=== PATIENT | female | born 1950 | race Caucasian/White ===

== ENCOUNTER 2017-02-01 22:19 | Emergency (ER) | payer MEDICARE, OTHER ==
[~2017-02-01] VITALS: Ht 162.6 cm; Wt 53.5 kg
[~2017-02-01 22:19] MED LIST: AMIT25TA PO; AZIT250T6 PO; Doxycycline Hyclate PO; FLUD0.1T PO; GABA-585 PO; GLIP10TA13 PO; GUAI118L13 PO; HYDR-2762 PO; HYDR-3074 PO; HYDR5TAB2 PO; IPRA3AMP IH; LISI2.5T PO; MAGN400C PO; METF10002 PO; MUPI1OIN NS; POTA20TA12 PO; SITA100T PO; TRAM50TA PO
--- NOTE | 2017-02-01 22:26 | ED.ADGEN ---
Past History Past Medical History: Arthritis, Diabetes, MRSA, Other Past Surgical History: Cholecystectomy, Other Alcohol Use: None Drug Use: None Adult General Chief Complaint Chief Complaint " .. I tripped and fell in front of the [employer] .. I fell on to my Lt shoulder and knee..." It was mid day... but I am still hurting.." HPI HPI Patient is a 66 year old female who presents with above hx and complaints of left shoulder and left knee pain. She has small abrasion to left knee. Is able to do straight leg lift. Ligaments appear to be grossly stable. Does have crepitation with range of motion. Does have pain with weightbearing. Distal neurovascular intact. Patient also has pain in left shoulder. Does have yes sensation in deltoid area, Some crepitation in ROM Lt. shoulder. Distal neurovascular intact. Pt. has pain and give away weakness with isolation of rotator cuff. Pt. follows with Dr. Nina. Review of Systems Review of Systems Constitutional: Denies fever or chills [] Eyes: Denies change in visual acuity, redness, or eye pain [] HENT: Denies nasal congestion or sore throat [] Respiratory: Denies cough or shortness of breath [] Cardiovascular: No additional information not addressed in HPI [] GI: Denies abdominal pain, nausea, vomiting, bloody stools or diarrhea [] : Denies dysuria or hematuria [] Musculoskeletal: Denies back pain or joint pain []Except findings in Lt shoulder and Knee Integument: Denies rash or skin lesions [] Neurologic: Denies headache, focal weakness or sensory changes [] Endocrine: Denies polyuria or polydipsia [] Family History Family History Non-contributory Current Medications Current Medications Current Medications Medications (Trade) Dose Ordered Sig/Berta Start Time Stop Time Status Last Admin Dose Admin Albuterol/ Ipratropium (Duoneb) 3 ml 1X ONCE 02/01/17 22:30 02/01/17 22:31 DC Oxycodone/ Acetaminophen (Percocet 10) 1 tab 1X ONCE 02/01/17 23:30 02/01/17 23:31 DC 02/01/17 23:25 1 TAB See Nursing for home meds. Allergies Allergies Allergies Coded Allergies Type Severity Reaction Last Updated Verified insulin regular Allergy Severe Anaphylaxis 05/13/14 Yes Penicillins Allergy Intermediate 05/14/14 No I S O L A T I O N *CONTACT* Allergy Unknown 05/15/14 No Physical Exam Physical Exam Constitutional: Moderate distress, non-toxic appearance. [] HENT: Normocephalic, atraumatic, bilateral external ears normal, oropharynx moist, no oral exudates, nose normal. [] Eyes: PERRLA, EOMI, conjunctiva normal, no discharge. [] Neck: Normal range of motion, no tenderness, supple, no stridor. [] Cardiovascular:Heart rate regular rhythm, no murmur [] Lungs & Thorax: Bilateral breath sounds clear to auscultation [] Abdomen: Bowel sounds normal, soft, no tenderness, no masses, no pulsatile masses. [] Old surgery scar. Skin: Warm, dry, no erythema, no rash. [] Back: No tenderness, no CVA tenderness. [] Extremities: No tenderness, no cyanosis, no clubbing, ROM intact, no edema. [] Except Lt. shoulder and Lt knee findings. Neurologic: Alert and oriented X 3, normal motor function, normal sensory function, no focal deficits noted. [] Psychologic: Affect anxious, judgement normal, mood normal. [] Current Patient Data Vital Signs Vital Signs Date Time Temp Pulse Resp B/P (MAP) Pulse Ox O2 Delivery O2 Flow Rate FiO2 02/02/17 01:17 93 20 142/77 (98) 94 Room Air 02/01/17 22:35 98.2 EKG EKG [] Radiology/Procedures Radiology/Procedures My interpretation of the knee films show no fracture or dislocation. Does have findings of arthritis. My interpretation left shoulder shows no obvious dislocation or significant fracture. Does have findings of degenerative joint changes.[] Course & Med Decision Making Course & Med Decision Making Pertinent Labs and Imaging studies reviewed. (See chart for details) [] Final Impression Final Impression 1. Contusions 2. Rotator cuff injury-Lt. [] Problems: Dragon Disclaimer Dragon Disclaimer This electronic medical record was generated, in whole or in part, using a voice recognition dictation system. ELIZABETH SCHMITZ MD Feb 01, 2017 22:26
[2017-02-01] MEDS ORDERED: IPRATRPIUM/ALBUTEROL 0.5/2.5MG 3 ML NEBU. NEB ONE (22:30)
[2017-02-01] MEDS ORDERED: oxyCODONE/APAP 10/325 1 TAB TABLET PO ONE (23:30)
[2017-02-01] MEDS ORDERED: HYDR1TAB12 PO (23:42)
[2017-02-02 01:17] VITALS: BP 142/77
--- NOTE | 2017-02-02 07:52 | RAD ---
Left knee with patella, 4 views, 02/01/2017: History: Fall, severe knee pain There is mild patchy bony demineralization. No acute fracture or dislocation is identified. There is mild spurring at the patellofemoral articulation. No joint effusion is evident. Moderate arterial calcifications are present. IMPRESSION: No acute left knee abnormality is detected.
--- NOTE | 2017-02-02 07:53 | RAD ---
Left shoulder, 3 views, 02/01/2017: History: Injury, fall, shoulder pain No fracture or dislocation is identified. There is mild degenerative change at the glenohumeral articulation. IMPRESSION: No acute bony abnormality is detected.
== END 2017-02-02 00:28 | disposition home or self-care (01) ==
LOC: ER 22:19
DX: S43.422A Sprain of left rotator cuff capsule, initial encounter (principal); S80.02XA Contusion of left knee, initial encounter; E11.9 Type 2 diabetes mellitus without complications; M19.90 Unspecified osteoarthritis, unspecified site; Z86.14 Personal history of Methicillin resistant Staphylococcus aureus infection; Z88.0 Allergy status to penicillin; Z88.8 Allergy status to other drugs, medicaments and biological substances; Z91.041 Radiographic dye allergy status; W01.0XXA Fall on same level from slipping, tripping and stumbling without subsequent striking against object, initial encounter; Y93.89 Activity, other specified; Y99.8 Other external cause status; Y92.89 Other specified places as the place of occurrence of the external cause
CPT/HCPCS: 73030; 73564; 99284

== ENCOUNTER 2017-03-29 16:50 | Emergency (ER) | payer MEDICARE, OTHER ==
[~2017-03-29] VITALS: Ht 162.6 cm; Wt 55.5 kg
[~2017-03-29 16:50] MED LIST changes: +HYDR1TAB12 PO
[2017-03-29 17:00] VITALS: BP 142/77
[2017-03-29] MEDS ORDERED: levoFLOXacin 750 MG TABLET PO STA (17:41)
[2017-03-29] MEDS ORDERED: LEVO750T31 PO (17:44)
--- NOTE | 2017-03-29 17:44 | PHYS DOC ---
Past History Past Medical History: Arthritis, Diabetes, MRSA, Other Past Surgical History: Cholecystectomy Alcohol Use: None Drug Use: None Adult General Chief Complaint Chief Complaint: COUGH HPI HPI Patient is a 66 year old female who presents with complaint of cough for the past 8 days. Patient states that she started having symptoms last weekend. Patient states that she was exposed to a daughter who had similar symptoms prior to onset. Patient has history of bronchitis. Patient states that she has been having worsening productive cough over the past few days of greenish sputum. Patient denies fevers, chest pain, or vomiting. Patient has been using [id number] medications with no relief in symptoms. Patient follows with Dr. Nina for primary care. Patient denies shortness of breath at this time. Patient has received her flu shot this year. Review of Systems Review of Systems Constitutional: Denies fever or chills [] Eyes: Denies change in visual acuity, redness, or eye pain [] HENT: Denies nasal congestion or sore throat [] Respiratory: Productive cough[] Cardiovascular: Denies chest pain or edema[] GI: Denies abdominal pain, nausea, vomiting, bloody stools or diarrhea [] : Denies dysuria or hematuria [] Musculoskeletal: Denies back pain or joint pain [] Integument: Denies rash or skin lesions [] Neurologic: Denies headache, focal weakness or sensory changes [] Allergies Allergies Allergies Coded Allergies Type Severity Reaction Last Updated Verified insulin regular Allergy Severe Anaphylaxis 05/13/14 Yes Penicillins Allergy Intermediate 05/14/14 No I S O L A T I O N *CONTACT* Allergy Unknown 05/15/14 No Physical Exam Physical Exam Constitutional: Alert, afebrile, no acute distress. [] HENT: Normocephalic, atraumatic, bilateral external ears normal, oropharynx moist, no oral exudates, nose normal. [] Eyes: PERRLA, EOMI, conjunctiva normal, no discharge. [] Neck: Normal range of motion, no tenderness, supple, no stridor. [] Cardiovascular:Heart rate regular rhythm, no murmur [] Lungs & Thorax: Bilateral breath sounds clear to auscultation, no wheezes [] Abdomen: Bowel sounds normal, soft, no tenderness, no masses, no pulsatile masses. [] Skin: Warm, dry, no erythema, no rash. [] Back: No tenderness, no CVA tenderness. [] Extremities: No tenderness, no cyanosis, no clubbing, ROM intact, no edema. [] Neurologic: Alert and oriented X 3, normal motor function, normal sensory function, no focal deficits noted. [] Current Patient Data Vital Signs Vital Signs Date Time Temp Pulse Resp B/P (MAP) Pulse Ox O2 Delivery O2 Flow Rate FiO2 03/29/17 17:00 97.3 104 16 98 Room Air Lab Results Not performed EKG EKG Not performed[] Radiology/Procedures Radiology/Procedures Not performed[] Course & Med Decision Making Course & Med Decision Making Pertinent Labs and Imaging studies reviewed. (See chart for details) Due to chronicity of symptoms with trending worsening symptoms the past few days , the patient will be started on oral Levaquin for treatment of possible pneumonia. Patient given first dose of Levaquin while in the emergency department. Patient's vital signs are stable and patient is in no acute distress at this time. The patient is appropriate for outpatient follow-up. Advised follow-up with Dr. Nina in 2 days for reevaluation and advised return emergency department for any worsening symptoms. Patient voiced understanding and in agreement with treatment plan. Dragon Disclaimer Dragon Disclaimer This chart was dictated in whole or in part using Voice Recognition software in a busy, high-work load, and often noisy Emergency Department environment. It may contain unintended and wholly unrecognized errors or omissions. Departure Departure: Impression: Primary Impression: Cough Disposition: 01 HOME, SELF-CARE Condition: STABLE Referrals: KAM NINA MD (PCP) Patient Instructions: Cough, Adult Additional Instructions: Follow-up Dr. Nina in 2 days for reevaluation. Return to emergency department for any worsening symptoms. Scripts Levofloxacin (LEVAQUIN) 750 Mg Tablet 1 TAB PO DAILY, #4 TAB Prov: KALIN ROGER MD 03/29/17 KALIN ROGER MD Mar 29, 2017 17:44
== END 2017-03-29 18:14 | disposition home or self-care (01) ==
LOC: ER 16:50
DX: R05 Cough (principal); E11.9 Type 2 diabetes mellitus without complications; Z86.14 Personal history of Methicillin resistant Staphylococcus aureus infection; Z88.0 Allergy status to penicillin; Z88.8 Allergy status to other drugs, medicaments and biological substances; Z91.041 Radiographic dye allergy status
CPT/HCPCS: 99283

== ENCOUNTER 2019-03-29 02:45 | Emergency (ER) | payer MEDICARE, OTHER ==
[~2019-03-29] VITALS: Ht 162.6 cm; Wt 54.4 kg
[~2019-03-29 02:45] MED LIST changes: -HYDR-2762 PO; +HYDR-2765 PO; -HYDR-3074 PO; +HYDR10TA66 PO; -HYDR1TAB12 PO; +HYDR1TAB13 PO; -HYDR5TAB2 PO; +HYDR5TAB3 PO; -IPRA3AMP IH; +IPRA3AMP29 IH; +LEVO750T31 PO; -METF10002 PO; +METF10007 PO
--- NOTE | 2019-03-29 03:10 | PHYS DOC ---
Past History Past Medical History: Arthritis, Diabetes, MRSA, Other Past Surgical History: Cholecystectomy Alcohol Use: None Drug Use: None Adult General Chief Complaint Chief Complaint: NAUSEA/VOMITING/DIARRHEA HPI HPI 68-year-old female presents with 2 day history of generalized malaise with associated diffuse abdominal pain and associated nausea. Patient also with chills. Spouse reports he had similar symptoms which are now resolved. Denies trauma. Denies dysuria. Review of Systems Review of Systems Constitutional: Reports generalized malaise and subjective fever and chills Eyes: Denies redness or eye pain HENT: Denies nasal congestion or sore throat Respiratory: Denies cough or shortness of breath Cardiovascular: Denies chest pain or palpitations GI: Reports abdominal pain, nausea, and vomiting : Denies dysuria or hematuria Musculoskeletal: Denies back pain or joint pain Integument: Denies rash or skin lesions Neurologic: Denies headache, focal weakness or sensory changes Complete systems were reviewed and found to be within normal limits, except as documented in this note. Allergies Allergies Allergies Coded Allergies Type Severity Reaction Last Updated Verified insulin regular Allergy Severe Anaphylaxis 05/13/14 Yes Penicillins Allergy Intermediate 05/14/14 No I S O L A T I O N *CONTACT* Allergy Unknown 05/15/14 No Physical Exam Physical Exam Constitutional: Well developed, well nourished, no acute distress, non-toxic appearance HENT: Normocephalic, atraumatic, oropharynx moist Eyes: Conjunctiva normal, no discharge Neck: Normal range of motion, no tenderness, supple Cardiovascular: Heart rate tachycardic, regular rhythm Lungs & Thorax: Bilateral breath sounds clear to auscultation, no wheezing Abdomen: Soft, epigastric tenderness, no guarding, mild distention Skin: Warm, dry, no erythema, no rash Back: No tenderness, no CVA tenderness Extremities: No tenderness, ROM intact, no edema Neurologic: Alert and oriented X 3, no focal deficits noted Psychologic: Affect normal, judgement normal EKG EKG @0320 Sinus tachycardia at 112 bpm, NO ST elevation, QRS 76ms , QT/QTc 296/405ms Radiology/Procedures Radiology/Procedures PROCEDURE: CT ABD PELV W/ IV CONTRST ONLY CT abdomen and pelvis with contrast. HISTORY: Abdominal pain, nausea and vomiting CT scan of the abdomen and pelvis was done using 75 mL Omnipaque 300 contrast. There is bronchiectasis and atelectasis in the lingula and right middle lobe. The lung bases are otherwise clear. There is no effusion. There is arthritis in the lower lumbar spine. Degenerative disc disease at L5-S1. Bladder is distended. Uterus and ovaries are normal. There is increased stool in the colon. Liver is normal in appearance. The patient's had a cholecystectomy. Spleen and adrenal glands are normal. Pancreas is normal. There is a staghorn calculus in the right kidney similar to the prior study from April 2016. There are small calculi in the lower pole of the left kidney. The upper pole calculus noted on the prior study is not present on the current exam. There is left hydronephrosis and hydroureter. There is a 10 x 6 mm calculus in the distal third of the left ureter but above the bladder. Small bowel pattern is normal. There is air in the bladder wall and within the bladder. Emphysematous cystitis can have this pattern. IMPRESSION: 1. Staghorn calculus right kidney. 2. Intrarenal calculi left kidney. 3. 10 x 6 mm calculus in the distal third of the left ureter with left hydronephrosis. 4. 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 5. Increased stool in the colon. Course & Med Decision Making Course & Med Decision Making Pertinent Labs and Imaging studies reviewed. (See chart for details) Patient presents with report of epigastric abdominal pain with associated nausea and vomiting 2 days. History of spouse with similar symptoms which are now resolved. Fever addressed. Symptomatic treatment provided. IV fluid hydration given. EKG stable. Labs obtained and posted to chart. SIRS criteria met with tachycardia and fever. UA with signs of infection. Lactic acid elevated. Patient meeting severe sepsis criteria. 30ml/kg IVF bolus given. Empiric antibiotics given. CT abdomen/pelvis with finding of staghorn calculi and emphysematous cystitis. Hypomagnesemia addressed. Patient requiring admission for further evaluation and treatment. Discussed with Dr. Nina (PCP) who is in agreement with transfer to facility with urology coverage. Utilized [facility] transfer line with acceptance for transfer to [facility]. Discussed with [facility] with Dr. Dakota Guo (hospitalist) accepting of transfer. Discussed findings and plan with patient and family, who acknowledge understanding and agreement. Dragon Disclaimer Dragon Disclaimer This electronic medical record was generated, in whole or in part, using a voice recognition dictation system. Departure Departure: Impression: Primary Impression: Severe sepsis Additional Impressions: Emphysematous cystitis Staghorn calculus Hypomagnesemia Hydronephrosis with obstructing calculus Disposition: ADMITTED INPATIENT Condition: GUARDED Referrals: KAM NINA MD (PCP) Sepsis Assessment Date and Time of Assessment Date: Mar 29, 2019 Time: 05:34 Fluid Challenge: Is the fluid challenge complet: No IBW Target Volume Used: No BMI > 30: No Vital Signs Vital Signs Vital Signs Date Time Temp Pulse Resp B/P (MAP) Pulse Ox O2 Delivery O2 Flow Rate FiO2 03/29/19 05:27 98.7 110 22 138/64 (88) 98 Nasal Cannula 2.0 Temperature Source: Oral Respirations Respiratory Effort: Normal Respiratory Pattern: Normal Cardiovascular Pulse Rhythm: Regular Heart: Nml rate, reg. rhythm Lung Sounds Breath Sounds: Clear Capillary Refill Capillary Refill: Rt Hand < 3 seconds Peripheral Pulse Pulse Location: Radial Pulse Strength: Normal (2+) Pulse Assessment Method: Palpation Integumentary Skin: Warm, Dry Skin Moisture: Dry Skin Turgor: Normal Skin Color: warm, dry Fingernail Color: WNL Critical Care Time Critical care time was 30 minutes which includes time at bedside, spent in discussion of patient's care with specialists and/or family members, with interpretation of laboratory and/or radiological studies and is exclusive of procedures. Problem Qualifiers RAFAEL CUMMINS DO Mar 29, 2019 03:10
[2019-03-29] MEDS ORDERED: KETOROLAC 15 MG/ML VIAL. IVP ONE (03:15)
[2019-03-29] MEDS ORDERED: IV NORMAL SALINE 1,000ML 1,000 ML IV ONE ×2 (03:15→05:30)
[2019-03-29] MEDS ORDERED: FAMOTIDINE 20 MG/2 ML VIAL IVP ONE (03:15)
[2019-03-29] MEDS ORDERED: ONDANSETRON PF 4 MG/2 ML VIAL. IVP ONE (03:15)
[2019-03-29] MEDS ORDERED: ACETAMINOPHEN 500 MG TABLET PO ONE (03:30)
[2019-03-29] MEDS ORDERED: IOHEXOL 300 MG/ML 75 ML VIAL. IV ONE (03:30)
[2019-03-29] MEDS ORDERED: CONTRAST GIVEN MC PRN (03:30)
--- NOTE | 2019-03-29 03:39 | EKG ---
[address] [address] Test Date: 2019-03-29 Test Time: 03:20:02 Pat Name: CARLINE CAMARILLO Department: Room: Gender: F Tele Rn: : [id number] Requested By: RAFAEL CUMMINS Order Number: [id number] Reading MD: Measurements Intervals [place] Rate: 112 P: 33 CT: 154 QRS: 24 QRSD: 76 T: 79 QT: 296 QTc: 405 Interpretive Statements SINUS TACHYCARDIA T ABNORMALITY IN HIGH LATERAL LEADS ABNORMAL ECG RI6.01 No previous ECG available for comparison
[2019-03-29 03:41] LABS: BASO # 0.1 x10^3/uL (0.0-0.2); BASO % 0 % (0-3); EOS # 0.1 x10^3/uL (0.0-0.7); EOS % 1 % (0-3); HEMATOCRIT 38.9 % (36.0-47.0); HEMOGLOBIN 12.4 g/dL (12.0-15.5); LYMPH # 1.3 x10^3/uL (1.0-4.8); LYMPH % 10 % (24-48); MEAN CORPUSCULAR HEMOGLOBIN 28 pg (25-35); MEAN CORPUSCULAR HGB CONC 32 g/dL (31-37); MEAN CORPUSCULAR VOLUME 89 fL (79-100); MONO # 1.4 x10^3/uL (0.0-1.1); MONO % 10 % (0-9); NEUT # 10.4 x10^3uL (1.8-7.7); NEUT % 79 % (31-73); PLATELET COUNT 346 x10^3/uL (140-400); RED BLOOD COUNT 4.38 x10^6/uL (3.50-5.40); WHITE BLOOD COUNT 13.2 x10^3/uL (4.0-11.0)
[2019-03-29 04:07] LABS: ALBUMIN 3.1 g/dL (3.4-5.0); ALBUMIN/GLOBULIN RATIO 0.6 (1.0-1.7); ALK PHOS 90 U/L (46-116); ALT (SGPT) 15 U/L (14-59); ANION GAP 12 (6-14); AST (SGOT) 11 U/L (15-37); BLOOD UREA NITROGEN 13 mg/dL (7-20); BUN/CREATININE RATIO 14 (6-20); CARBON DIOXIDE 29 mmol/L (21-32); CHLORIDE 97 mmol/L (98-107); CREATININE 0.9 mg/dL (0.6-1.0); GFR 62.6; GLUCOSE 255 mg/dL (70-99); LIPASE 104 U/L (73-393); MAGNESIUM 1.5 mg/dL (1.8-2.4); POTASSIUM 3.8 mmol/L (3.5-5.1); SODIUM 138 mmol/L (136-145); TOTAL BILIRUBIN 0.4 mg/dL (0.2-1.0); TOTAL PROTEIN 7.9 g/dL (6.4-8.2)
--- NOTE | 2019-03-29 05:02 | RAD ---
CT abdomen and pelvis with contrast. HISTORY: Abdominal pain, nausea and vomiting CT scan of the abdomen and pelvis was done using 75 mL Omnipaque 300 contrast. There is bronchiectasis and atelectasis in the lingula and right middle lobe. The lung bases are otherwise clear. There is no effusion. There is arthritis in the lower lumbar spine. Degenerative disc disease at L5-S1. Bladder is distended. Uterus and ovaries are normal. There is increased stool in the colon. Liver is normal in appearance. The patient's had a cholecystectomy. Spleen and adrenal glands are normal. Pancreas is normal. There is a staghorn calculus in the right kidney similar to the prior study from April 2016. There are small calculi in the lower pole of the left kidney. The upper pole calculus noted on the prior study is not present on the current exam. There is left hydronephrosis and hydroureter. There is a 10 x 6 mm calculus in the distal third of the left ureter but above the bladder. Small bowel pattern is normal. There is air in the bladder wall and within the bladder. Emphysematous cystitis can have this pattern. IMPRESSION: 1. Staghorn calculus right kidney. 2. Intrarenal calculi left kidney. 3. 10 x 6 mm calculus in the distal third of the left ureter with left hydronephrosis. 4. 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 5. Increased stool in the colon. PQRS Compliance Statement: One or more of the following individualized dose reduction techniques were utilized for this examination: 1. Automated exposure control 2. Adjustment of the mA and/or kV according to patient size 3. Use of iterative reconstruction technique Electronically signed by: Curry Lugo MD (03/29/2019 4:59 AM) [id number]
[2019-03-29 05:03] LABS: BILIRUBIN,URINE NEG (NEG); CLARITY,URINE HAZY; COLOR,URINE YELLOW; GLUCOSE,URINE >=1000 mg/dL (NEG); NITRITE,URINE NEG (NEG); UROBILINOGEN,URINE 0.2 mg/dL (0.2 mg/dL)
[2019-03-29 05:04] LABS: BACTERIA,URINE MOD /HPF (0-FEW); SQUAMOUS EPITHELIAL CELL,UR OCC /LPF; WBC,URINE >40 /HPF (0-4)
[2019-03-29] MEDS ORDERED: MAGNESIUM SULFATE 2GM 50 ML IV ONE (05:45)
[2019-03-29 05:57] VITALS: BP 140/75
[2019-03-29] MEDS ORDERED: AZTREONAM 2 GM in IV NORMAL SALINE 100ML 100 ML IV ONE (06:15)
== END 2019-03-29 08:27 | disposition other institution (70) ==
LOC: ER 02:45
DX: A41.9 Sepsis, unspecified organism (principal); R65.20 Severe sepsis without septic shock; N30.80 Other cystitis without hematuria; N13.2 Hydronephrosis with renal and ureteral calculous obstruction; E83.42 Hypomagnesemia; R11.2 Nausea with vomiting, unspecified; M19.90 Unspecified osteoarthritis, unspecified site; E11.9 Type 2 diabetes mellitus without complications; Z86.14 Personal history of Methicillin resistant Staphylococcus aureus infection; Z90.49 Acquired absence of other specified parts of digestive tract; Z91.041 Radiographic dye allergy status; Z88.0 Allergy status to penicillin; Z88.8 Allergy status to other drugs, medicaments and biological substances
CPT/HCPCS: 36415; 74177; 80053; 81001; 82553; 83605; 83690; 83735; 84484; 85025; 85610; 85730; 87040; 87086; 87205; 93005; 96361; 96365; 96366; 96375; 99291; J1885; J1956; J2405; J3475; J3490; Q9967; 87077; 87186; J7030

== ENCOUNTER 2019-04-07 16:49 | Inpatient (IN) | payer MEDICARE, OTHER ==
[~2019-04-07] VITALS: Ht 162.6 cm; Wt 61.3 kg
[2019-04-07 17:09] VITALS: BP 131/76
[2019-04-07] MEDS ORDERED: ONDANSETRON 4MG ODT 4TABLET STARTPACK. PO ONE (17:30)
[2019-04-07] MEDS ORDERED: ONDANSETRON ODT 4 MG TAB.RAPDIS PO PRN ×2 (17:30→20:30)
[2019-04-07] MEDS: IV NORMAL SALINE 1,000ML 1,000 ML IV SCH ×2 (17:30→21:57)
[2019-04-07 17:34] LABS: BASO % 0 % (0-3); EOS # 0.3 x10^3/uL (0.0-0.7); EOS % 3 % (0-3); HEMATOCRIT 37.5 % (36.0-47.0); LYMPH # 1.6 x10^3/uL (1.0-4.8); LYMPH % 17 % (24-48); MEAN CORPUSCULAR HEMOGLOBIN 29 pg (25-35); MEAN CORPUSCULAR HGB CONC 32 g/dL (31-37); MEAN CORPUSCULAR VOLUME 89 fL (79-100); MONO # 1.1 x10^3/uL (0.0-1.1); MONO % 11 % (0-9); NEUT # 6.6 x10^3uL (1.8-7.7); NEUT % 69 % (31-73); PLATELET COUNT 480 x10^3/uL (140-400); RED BLOOD COUNT 4.21 x10^6/uL (3.50-5.40); RED CELL DISTRIBUTION WIDTH 13.9 % (11.5-14.5); WHITE BLOOD COUNT 9.6 x10^3/uL (4.0-11.0)
[2019-04-07] MEDS: MORPHINE SULFATE 2 MG/ML DISP.SYRIN. IV PRN ×2 (17:36→21:17)
[2019-04-07 17:48] LABS: ALBUMIN 2.8 g/dL (3.4-5.0); ALBUMIN/GLOBULIN RATIO 0.7 (1.0-1.7); CALCIUM 8.9 mg/dL (8.5-10.1); CREATININE 0.9 mg/dL (0.6-1.0); GFR 62.6; POTASSIUM 3.5 mmol/L (3.5-5.1); TOTAL BILIRUBIN 0.3 mg/dL (0.2-1.0); TOTAL PROTEIN 7.1 g/dL (6.4-8.2)
[2019-04-07] MEDS ORDERED: DIPH1TAB PO (18:12)
[2019-04-07] MEDS ORDERED: ONDA4TAB12 PO (18:12)
[2019-04-07] MEDS ORDERED: ACET-704 PO (18:12)
[2019-04-07] MEDS ORDERED: DULO30CA2 PO (18:12)
[2019-04-07] MEDS ORDERED: MAGN500C10 PO (18:12)
[2019-04-07] MEDS ORDERED: LEVO500T8 PO (18:12)
[2019-04-07] MEDS ORDERED: LISI-338 PO (18:12)
[2019-04-07] MEDS ORDERED: MIDO10TA PO (18:12)
[2019-04-07] MEDS ORDERED: COLE1TAB PO (18:12)
[2019-04-07] MEDS ORDERED: DIAZ5TAB4 PO (18:12)
[2019-04-07] MEDS ORDERED: GLIP5TAB10 PO (18:12)
[2019-04-07] MEDS ORDERED: GLIP-26 PO (18:12)
[2019-04-07] MEDS ORDERED: LACT1CAP2 PO (18:16)
--- NOTE | 2019-04-07 19:08 | RAD ---
Exam: Acute abdominal series INDICATION: Nausea and vomiting TECHNIQUE: Frontal view of the chest with upright and supine views of the abdomen Comparisons: CT 03/29/2019 FINDINGS: The cardiomediastinal silhouette and pulmonary vessels are within normal limits. The lung and pleural spaces are clear. There is redemonstration of a right-sided staghorn calculus. Left-sided nephroureteral stent is noted. Suture material in the right lower quadrant is seen. Air and stool are seen throughout the colon to level the rectum in a nonobstructive bowel gas pattern. No suspicious masses or calcifications. No free air. Visualized osseous structures are unremarkable. IMPRESSION: 1. No acute cardiopulmonary process. 2. Nonobstructive bowel gas pattern. 3. Interval placement of left-sided nephroureteral stent in redemonstration of right staghorn calculus. Electronically signed by: Aurelio Zavala MD (04/07/2019 7:05 PM) [facility]
[2019-04-07] MEDS: PROMETHAZINE 25 MG TABLET. PO PRN (19:44)
[2019-04-07] MEDS ORDERED: ACETAMINOPHEN/CODEINE 300/30MG TABLET PO PRN (20:30)
[2019-04-07] MEDS ORDERED: DIPHENOXYLATE/ATROPINE TABLET. PO PRN (21:00)
[2019-04-07 21:03] VITALS: BP 132/82
[2019-04-07] MEDS: MAGNESIUM OXIDE 400 MG TABLET PO SCH (21:15)
[2019-04-07] MEDS: GABAPENTIN 100 MG CAPSULE. PO SCH (21:15)
[2019-04-07] MEDS: DULoxetine HCL 30 MG CAPSULE.DR PO SCH (21:15)
[2019-04-07] MEDS: HYDROCORTISONE 10 MG TABLET PO SCH (21:16)
[2019-04-07] MEDS: diazePAM 5 MG TABLET PO SCH (21:16)
[2019-04-07] MEDS: COLESTIPOL HCL 1 GM TABLET PO SCH (21:16)
[2019-04-07 21:55] LABS: BILIRUBIN,URINE NEG (NEG); CLARITY,URINE CLOUDY; COLOR,URINE RED; GLUCOSE,URINE >=1000 mg/dL (NEG); NITRITE,URINE NEG (NEG); UROBILINOGEN,URINE 0.2 mg/dL (0.2 mg/dL)
[2019-04-07 21:56] LABS: BACTERIA,URINE 0 /HPF (0-FEW); RBC,URINE TNTC /HPF (0-2); SQUAMOUS EPITHELIAL CELL,UR OCC /LPF
[2019-04-07] MEDS: IPRATRPIUM/ALBUTEROL 0.5/2.5MG 3 ML NEBU. IH SCH (22:00)
[2019-04-07] MEDS ORDERED: DEXTROSE 50% 25 GM / 50ML DISP.SYRIN. IV PRN (22:15)
[2019-04-08 00:36] VITALS: BP 134/80
[2019-04-08] MEDS: IV NORMAL SALINE 1,000ML 1,000 ML IV SCH ×3 (02:05→20:04)
[2019-04-08] MEDS: IPRATRPIUM/ALBUTEROL 0.5/2.5MG 3 ML NEBU. IH SCH ×3 (05:45→21:30)
[2019-04-08] MEDS: MIDODRINE 5 MG TABLET PO SCH ×3 (05:57→18:48)
[2019-04-08 06:12] VITALS: BP 110/68
[2019-04-08] MEDS ORDERED: INSULIN LISPRO 300 UNITS/3 ML VIAL. SQ SCH (08:00)
[2019-04-08] MEDS: DULoxetine HCL 30 MG CAPSULE.DR PO SCH ×2 (08:47→20:05)
[2019-04-08] MEDS: diazePAM 5 MG TABLET PO SCH ×4 (08:47→20:05)
[2019-04-08] MEDS: GABAPENTIN 100 MG CAPSULE. PO SCH ×2 (08:47→15:36)
[2019-04-08] MEDS: metFORMIN 500 MG TABLET PO SCH ×2 (08:47→18:53)
[2019-04-08] MEDS: MAGNESIUM OXIDE 400 MG TABLET PO SCH ×2 (08:47→20:05)
[2019-04-08] MEDS: glipiZIDE 5 MG TABLET PO PRN ×2 (08:47→18:48)
[2019-04-08] MEDS: HYDROCORTISONE 10 MG TABLET PO SCH ×2 (08:56→20:06)
[2019-04-08] MEDS: COLESTIPOL HCL 1 GM TABLET PO SCH ×2 (08:56→20:06)
[2019-04-08] MEDS: FLUDROCORTISONE 0.1 MG TABLET PO SCH (08:56)
[2019-04-08] MEDS ORDERED: levoFLOXacin 500 MG TABLET PO SCH (09:00)
[2019-04-08] MEDS: LISINOPRIL 5 MG TABLET. PO SCH (09:55)
[2019-04-08] MEDS: LACTOBACILLUS RHAMNOSUS GG 1 CAPSULE. PO SCH ×2 (09:55→20:05)
[2019-04-08] MEDS: LINAGLIPTIN 5 MG TABLET PO SCH (09:59)
[2019-04-08 11:03] VITALS: BP 126/69
--- NOTE | 2019-04-08 11:58 | RAD ---
Examination: CT ABDOMEN PELVIS WO CONTRAST History: Abdominal pain Comparison/Correlation: 03/29/2019 CT abdomen and pelvis with IV contrast Findings: Axial images of the abdomen and pelvis were obtained without contrast. Sagittal and coronal reformatted images were provided. Minimal scarring and bronchiectasis at the anterior right lung base is at the cardiophrenic angles is noted. No definite pleural effusion at the lung bases. Coronary show calcification is visible. Cholecystectomy noted. Liver, spleen, pancreas, and adrenal glands are normal. Moderate quantity of debris in the stomach is evident. Right renal staghorn calculus is present measuring 2.5 cm x 1.7 cm similar to the prior exam. Within the right lower pole major calyx, there is again seen a calculus measuring up to 2.2 cm longitudinal by 1.4 cm x 1.4 cm. Few small punctate calculi involving the right renal inferior pole calyces also again are seen. Slight fullness of the right renal pelvis is evident. There is no right hydroureter. There are a few calculi involving the left renal inferior pole calyces. The largest of these measures 0.45 cm maximum diameter and the next largest is up to 0.3 cm in diameter. Smaller punctate calculi also are present. There is a stent involving the left collecting system extending from the renal pelvis into the urinary bladder. At the level of S1, there is a calculus within the left ureter along the posterior margin of the stent and this measures 0.55 cm x 0.3 cm x 0.8 cm in longitudinal. No urinary bladder calculi identified. Uterus is unremarkable. No ascites or pelvic free fluid. No enlarged abdominal or pelvic lymph nodes. Concentric disc bulge at L4-5 with spinal canal stenosis is present. Concentric disc bulge or spinal canal stenosis of a lesser degree at L3-4 identified. Impression: Left ureteral calculus is unchanged in location within the left ureter. Left ureteral stent in the interval. No significant hydronephrosis or hydroureter. Right renal staghorn calculus involving again identified. Nonobstructive left renal calculi also seen. PQRS Compliance Statement: One or more of the following individualized dose reduction techniques were utilized for this examination: 1. Automated exposure control 2. Adjustment of the mA and/or kV according to patient size 3. Use of iterative reconstruction technique Electronically signed by: Toi Drew MD (04/08/2019 11:55 AM) [facility]
[2019-04-08 15:45] VITALS: BP 103/62
[2019-04-08 19:43] VITALS: BP 102/65
[2019-04-08] MEDS: GABAPENTIN 300 MG CAPSULE. PO SCH (20:05)
[2019-04-08 22:52] VITALS: BP 124/72
[2019-04-09] MEDS: IV NORMAL SALINE 1,000ML 1,000 ML IV SCH ×2 (03:29→17:29)
[2019-04-09 05:15] VITALS: BP 120/72
[2019-04-09] MEDS: IPRATRPIUM/ALBUTEROL 0.5/2.5MG 3 ML NEBU. IH SCH ×3 (05:38→20:45)
--- NOTE | 2019-04-09 08:33 | PN ---
DATE: SUBJECTIVE: A 68-year-old female in with multiple kidney stones and urinary tract infection. The patient is receiving IV antibiotic therapy. Apparently, staghorn calculi can develop or have infective processes and she is receiving IV Levaquin, making good progress with that. She is remaining afebrile, blood pressure 102/65, respiratory rate ____, pulse 90, afebrile. The patient is alert and oriented. She ____ pain has come down from a 9/10 down to about 7-8/10. OBJECTIVE: LUNGS: Clear. CARDIOVASCULAR: Stable. ABDOMEN: Soft. There is definite tenderness in the mid to left lower quadrant area consistent with her kidney stone that she is trying to pass. In any case, we tried to get her transferred to . They reviewed her case and did not feel that she needed to be transferred at this time. In any case, impression, nephrolithiasis, dehydration, urinary tract infection, type 2 diabetes. THE PATIENT STATES THAT SHE IS ALLERGIC TO INSULIN and refuses to take insulin, so we are going to keep her on oral hypoglycemics and are limited by what we have here. Blood sugars are still running in the low 200s. IMPRESSION: Therefore of staghorn calculi, urinary tract infection, nephrolithiasis with urinary tract infection, type 2 diabetes, poorly controlled. PLAN: We will continue with IV antibiotic therapy, pain management and make further evaluation on her as indicated. KAM GARCIA MD DR: DOROTEO/marky JOB#: [id number] / [id number]
[2019-04-09] MEDS: diazePAM 5 MG TABLET PO SCH ×4 (08:51→21:08)
[2019-04-09] MEDS: LACTOBACILLUS RHAMNOSUS GG 1 CAPSULE. PO SCH ×2 (08:51→21:07)
[2019-04-09] MEDS: DULoxetine HCL 30 MG CAPSULE.DR PO SCH ×2 (08:51→21:07)
[2019-04-09] MEDS: metFORMIN 500 MG TABLET PO SCH ×2 (08:52→17:30)
[2019-04-09] MEDS: MAGNESIUM OXIDE 400 MG TABLET PO SCH ×2 (08:52→21:07)
[2019-04-09] MEDS: MIDODRINE 5 MG TABLET PO SCH ×3 (08:52→17:30)
[2019-04-09] MEDS: LISINOPRIL 5 MG TABLET. PO SCH (08:53)
[2019-04-09] MEDS: GABAPENTIN 300 MG CAPSULE. PO SCH ×3 (08:53→21:07)
[2019-04-09] MEDS: LINAGLIPTIN 5 MG TABLET PO SCH (08:53)
[2019-04-09] MEDS: COLESTIPOL HCL 1 GM TABLET PO SCH ×2 (08:54→21:08)
[2019-04-09] MEDS: HYDROCORTISONE 10 MG TABLET PO SCH ×2 (08:55→21:07)
[2019-04-09] MEDS: FLUDROCORTISONE 0.1 MG TABLET PO SCH (08:55)
[2019-04-09 11:04] VITALS: BP 121/70
[2019-04-09 15:28] VITALS: BP 162/83
[2019-04-09 19:41] VITALS: BP 152/85
[2019-04-09] MEDS ORDERED: LACTOBACILLUS RHAMNOSUS GG 1 CAPSULE. PO SCH (21:00)
--- NOTE | 2019-04-09 21:27 | PN ---
DATE: 04/09/2019 SUBJECTIVE: A 68-year-old female in with kidney stones and urinary tract infection. The patient was attempted to be transferred down to , they said she was safe here and will continue on her IV antibiotic therapy. She refuses to take insulin. Blood pressure 162/83, respiratory rate 20, pulse 87, afebrile. The patient is alert and oriented. She is resting fairly comfortably, making fairly good progress overall. She is mobile. OBJECTIVE: VITAL SIGNS: Blood pressure 162/83, respiratory rate 20, pulse 87, afebrile. GENERAL: The patient is alert and oriented x 3. LUNGS: Diminished, but clear. CARDIOVASCULAR: Stable. ABDOMEN: Definite tenderness in the left mid to left lower quadrant area. No guarding, no rebounding. Positive bowel sounds, no hepatosplenomegaly. NEUROLOGIC: Intact. LABORATORY DATA: The patient is still in quite a bit of pain. Blood sugars are being vacillating, controlled with oral medications. We will make further evaluation on her as indicated. IMPRESSION: Kidney stones, severe pain, staghorn calculus, urinary tract infection. Continue with fluids, IV antibiotic therapy and the like. KAM GARCIA MD DR: DOROTEO/marky JOB#: [id number] / [id number]
[2019-04-09 23:10] VITALS: BP 106/61
[2019-04-10] MEDS: IV NORMAL SALINE 1,000ML 1,000 ML IV SCH ×3 (05:04→20:34)
[2019-04-10] MEDS: IPRATRPIUM/ALBUTEROL 0.5/2.5MG 3 ML NEBU. IH SCH ×2 (05:29→10:39)
[2019-04-10 05:39] VITALS: BP 119/71
[2019-04-10] MEDS: DULoxetine HCL 30 MG CAPSULE.DR PO SCH ×2 (08:33→20:31)
[2019-04-10] MEDS: MIDODRINE 5 MG TABLET PO SCH ×3 (08:33→16:58)
[2019-04-10] MEDS: HYDROCORTISONE 10 MG TABLET PO SCH ×2 (08:34→20:32)
[2019-04-10] MEDS: metFORMIN 500 MG TABLET PO SCH ×2 (08:34→16:57)
[2019-04-10] MEDS: LISINOPRIL 5 MG TABLET. PO SCH (08:34)
[2019-04-10] MEDS: LACTOBACILLUS RHAMNOSUS GG 1 CAPSULE. PO SCH ×2 (08:34→20:32)
[2019-04-10] MEDS: COLESTIPOL HCL 1 GM TABLET PO SCH ×2 (08:34→20:31)
[2019-04-10] MEDS: GABAPENTIN 300 MG CAPSULE. PO SCH ×3 (08:35→20:32)
[2019-04-10] MEDS: MAGNESIUM OXIDE 400 MG TABLET PO SCH ×2 (08:35→20:32)
[2019-04-10] MEDS: diazePAM 5 MG TABLET PO SCH ×4 (08:35→20:32)
[2019-04-10] MEDS: FLUDROCORTISONE 0.1 MG TABLET PO SCH (08:35)
[2019-04-10] MEDS: LINAGLIPTIN 5 MG TABLET PO SCH (08:35)
[2019-04-10 11:19] VITALS: BP 121/69
[2019-04-10] MEDS ORDERED: IPRATRPIUM/ALBUTEROL 0.5/2.5MG 3 ML NEBU. IH PRN (12:15)
[2019-04-10 18:44] VITALS: BP 171/80
[2019-04-10 22:37] VITALS: BP 155/76
[2019-04-11 05:18] VITALS: BP 117/71
[2019-04-11] MEDS ORDERED: levoFLOXacin 750 MG TABLET PO SCH (06:00)
[2019-04-11] MEDS: IV NORMAL SALINE 1,000ML 1,000 ML IV SCH ×2 (06:03→19:34)
[2019-04-11 06:32] LABS: BASO # 0.1 x10^3/uL (0.0-0.2); BASO % 1 % (0-3); EOS # 0.2 x10^3/uL (0.0-0.7); EOS % 3 % (0-3); HEMATOCRIT 33.4 % (36.0-47.0); HEMOGLOBIN 10.8 g/dL (12.0-15.5); LYMPH # 2.4 x10^3/uL (1.0-4.8); LYMPH % 26 % (24-48); MEAN CORPUSCULAR HEMOGLOBIN 29 pg (25-35); MEAN CORPUSCULAR HGB CONC 32 g/dL (31-37); MEAN CORPUSCULAR VOLUME 89 fL (79-100); MONO # 0.8 x10^3/uL (0.0-1.1); MONO % 9 % (0-9); NEUT # 5.6 x10^3uL (1.8-7.7); NEUT % 61 % (31-73); PLATELET COUNT 463 x10^3/uL (140-400); RED BLOOD COUNT 3.77 x10^6/uL (3.50-5.40); WHITE BLOOD COUNT 9.2 x10^3/uL (4.0-11.0)
[2019-04-11 07:00] LABS: ALBUMIN 2.6 g/dL (3.4-5.0); ALBUMIN/GLOBULIN RATIO 0.7 (1.0-1.7); CALCIUM 8.3 mg/dL (8.5-10.1); CREATININE 0.8 mg/dL (0.6-1.0); GFR 71.8; POTASSIUM 3.6 mmol/L (3.5-5.1); TOTAL BILIRUBIN 0.2 mg/dL (0.2-1.0); TOTAL PROTEIN 6.3 g/dL (6.4-8.2)
[2019-04-11] MEDS: metFORMIN 500 MG TABLET PO SCH ×2 (08:00→17:07)
[2019-04-11] MEDS: PROMETHAZINE 25 MG TABLET. PO PRN (08:31)
[2019-04-11] MEDS: LINAGLIPTIN 5 MG TABLET PO SCH (09:00)
[2019-04-11 09:59] LABS: CALCIUM 8.3 mg/dL (8.5-10.1); CREATININE 0.8 mg/dL (0.6-1.0); GFR 71.8; POTASSIUM 3.5 mmol/L (3.5-5.1)
[2019-04-11] MEDS: MAGNESIUM OXIDE 400 MG TABLET PO SCH ×2 (10:10→21:36)
[2019-04-11] MEDS: LACTOBACILLUS RHAMNOSUS GG 1 CAPSULE. PO SCH ×2 (10:10→21:36)
[2019-04-11] MEDS: MIDODRINE 5 MG TABLET PO SCH ×3 (10:11→17:06)
[2019-04-11] MEDS: DULoxetine HCL 30 MG CAPSULE.DR PO SCH ×2 (10:11→21:36)
[2019-04-11] MEDS: diazePAM 5 MG TABLET PO SCH ×4 (10:11→21:00)
[2019-04-11] MEDS: LISINOPRIL 5 MG TABLET. PO SCH (10:13)
[2019-04-11] MEDS: FLUDROCORTISONE 0.1 MG TABLET PO SCH (10:14)
[2019-04-11] MEDS: COLESTIPOL HCL 1 GM TABLET PO SCH ×2 (10:14→21:38)
[2019-04-11] MEDS: HYDROCORTISONE 10 MG TABLET PO SCH ×2 (10:15→21:37)
[2019-04-11] MEDS: GABAPENTIN 300 MG CAPSULE. PO SCH ×3 (10:16→21:37)
[2019-04-11 11:02] VITALS: BP 115/70
--- NOTE | 2019-04-11 13:33 | PN ---
DATE: SUBJECTIVE: A 68-year-old female in with multiple kidney stones as well as staghorn calculus, urinary tract infection. The patient is resting fairly comfortably, making fairly good progress overall; continues with IV antibiotic therapy; still having some pain on her left side. PHYSICAL EXAMINATION: VITAL SIGNS: Blood pressure has gone up to 170/80, respiratory rate 20, pulse 100, afebrile. GENERAL: The patient is alert and oriented. LUNGS: Clear. ABDOMEN: Soft. Diffuse tenderness in the left flank area, radiating down into the left groin; somewhat improved, however. EXTREMITIES: No clubbing, cyanosis or edema. NEUROLOGIC: Intact. IMPRESSION: Nephrolithiasis; urinary tract infection, organism unspecified; staghorn calculus, type 2 diabetes. The patient refuses to take insulin. PLAN: The patient otherwise continued to be monitored carefully, make further evaluation on her as indicated. KAM GARCIA MD DR: DOROTEO/marky JOB#: [id number] / [id number]
--- NOTE | 2019-04-11 14:23 | RAD ---
Acute abdominal series. 04/11/2019 8:33 AM Indication: Abdominal pain Comparison Study: CT of the abdomen and pelvis without contrast April 08, 2019 Discussion: There is no focal consolidation. There is no pleural effusion or pneumothorax. Heart size is normal. No pneumoperitoneum is identified. The bowel gas pattern is nonobstructive. There is a left-sided double-J ureteral stent in place. Cholecystectomy is noted. There is a large staghorn-type renal calculus involving the right renal pelvis extending into the inferior pole. Definitive identification of the previously seen left ureteral stone adjacent to the ureteral stent is not identified radiographically. Small renal calculi also appear to be present on the left. No acute osseous changes are seen. IMPRESSION: 1. No evidence of acute cardiopulmonary process. Nonobstructive bowel gas pattern 2. Right-sided staghorn calculus. Left nephrolithiasis. 3. Double-J ureteral stent on the left. Previously seen stone adjacent to the ureteral stent is not identified radiographically. Electronically signed by: Ferny Fleming MD (04/11/2019 2:19 PM) [id number]
[2019-04-11 15:02] VITALS: BP 125/75
[2019-04-11 17:44] VITALS: BP 120/68
[2019-04-11 20:36] VITALS: BP 128/78
[2019-04-11 23:15] VITALS: BP 156/81
--- NOTE | 2019-04-12 01:19 | PN ---
DATE: SUBJECTIVE: A 68-year-old female in with a possible sepsis and staghorn calculi, kidney stones and the like. The patient had severe nausea this morning, unable to keep her medications down. The patient otherwise seemed to be resting fairly comfortably, but had to be given promethazine, which made her increasingly fatigued and tired. As a result of this, the patient was monitored carefully. We will make further evaluation on her as indicated. PHYSICAL EXAMINATION: VITAL SIGNS: Blood pressure 120/68, respiratory rate 18, pulse 82, afebrile. GENERAL: The patient is alert and oriented. LUNGS: Diminished throughout, but basically clear. CARDIOVASCULAR: Stable. ABDOMEN: Soft. Definite tenderness in the epigastric area for this ill-appearing white female, in moderate amount of distress. NEUROLOGIC: Intact. IMPRESSION: Sepsis, urosepsis, staghorn calculi, nephrolithiasis, hematuria, type 2 diabetes, poorly controlled; REFUSES TO TAKE INSULIN, SAYS SHE IS ALLERGIC TO IT. KAM GARCIA MD DR: DOROTEO/marky JOB#: [id number] / [id number]
[2019-04-12 05:59] VITALS: BP 111/68
[2019-04-12] MEDS: IV NORMAL SALINE 1,000ML 1,000 ML IV SCH (06:10)
[2019-04-12] MEDS: metFORMIN 500 MG TABLET PO SCH (08:52)
[2019-04-12] MEDS: MAGNESIUM OXIDE 400 MG TABLET PO SCH (08:52)
[2019-04-12] MEDS: diazePAM 5 MG TABLET PO SCH (08:52)
[2019-04-12] MEDS: DULoxetine HCL 30 MG CAPSULE.DR PO SCH (08:52)
[2019-04-12] MEDS: GABAPENTIN 300 MG CAPSULE. PO SCH (08:53)
[2019-04-12] MEDS: LACTOBACILLUS RHAMNOSUS GG 1 CAPSULE. PO SCH (08:53)
[2019-04-12] MEDS: LINAGLIPTIN 5 MG TABLET PO SCH (08:53)
[2019-04-12] MEDS: LISINOPRIL 5 MG TABLET. PO SCH (08:53)
[2019-04-12] MEDS: COLESTIPOL HCL 1 GM TABLET PO SCH (08:54)
[2019-04-12] MEDS: FLUDROCORTISONE 0.1 MG TABLET PO SCH (08:55)
[2019-04-12] MEDS: HYDROCORTISONE 10 MG TABLET PO SCH (08:56)
[2019-04-12 09:02] VITALS: BP 111/68
[2019-04-12] MEDS: MIDODRINE 5 MG TABLET PO SCH (09:02)
[2019-04-12] MEDS ORDERED: NITROFURANTOIN MONOHYD/M-CRYST 100 MG CAPSULE. PO ONE (09:30)
[2019-04-12] MEDS ORDERED: NITR100C62 PO (09:51)
--- NOTE | 2019-04-13 10:54 | DS ---
DATE OF DISCHARGE: 04/12/2019 HOSPITAL COURSE: This is a 68-year-old female with a history of multiple kidney stones, recently seen at the [facility]. She was having problems there with a staghorn calculus and urinary tract infection, came in with severe nausea and vomiting, unable to keep fluids down and medication for that matter and the patient finally came in and was placed on IV antibiotic therapy as well as oral medications as well. The patient required pain medication for her nephrolithiasis. She finally passed some of the stones. Her pulse has gone up to over 100. In turn, we tried to transfer her down at for her staghorn calculus, but they said that she could probably wait and we were doing the right thing here and she will follow up in their clinic down there at in the Urology clinic for such. The patient made good progress during the rest of her hospitalization. CT scans of the abdomen and pelvis were performed showed left ureteral calculus. I was stuck in the left ureter there for a while and then may have moved and those reports have of the stone analysis apparently are still pending. The patient made relatively good progress. The day before discharge, she had severe nausea and vomiting, unable to be discharged. She was then later on taken off of the oral Levaquin, placed on Macrodantin and tolerated that, was discharged home. She will follow up with the Urology team down at . IMPRESSION: Nephrolithiasis, hematuria, abdominal pain with nausea and vomiting, staghorn calculus, type 2 diabetes. The patient refused to take insulin, said she was allergic to it, the pharmacy would not release it. KAM GARCIA MD DR: DOROTEO/marky JOB#: [id number] / [id number]
[2019-04-16 09:07] LABS: STONE ANALYSIS 10.5 mg (.)
== END 2019-04-12 11:08 | disposition home or self-care (01) | DRG 871 ==
LOC: 1 SOUTH 16:49
PROVIDERS: ADMIT Family Medicine; ATTEND Family Medicine
DX: A41.9 Sepsis, unspecified organism (principal); E43 Unspecified severe protein-calorie malnutrition; N20.2 Calculus of kidney with calculus of ureter; N30.01 Acute cystitis with hematuria; F17.210 Nicotine dependence, cigarettes, uncomplicated; E11.65 Type 2 diabetes mellitus with hyperglycemia; Z80.9 Family history of malignant neoplasm, unspecified; Z88.8 Allergy status to other drugs, medicaments and biological substances; Z88.0 Allergy status to penicillin; Z87.442 Personal history of urinary calculi; Z68.23 Body mass index [BMI] 23.0-23.9, adult
CPT/HCPCS: 36415; 74022; 74176; 80048; 80053; 81001; 82150; 82365; 82947; 83605; 83690; 85025; 87040; 87086; 87641; 94640; J1956; J2270; J7620; Q0162; Q0169; 97110; 97535; J7030

== ENCOUNTER 2019-12-31 16:47 | Emergency (ER) | payer MEDICARE, OTHER ==
[~2019-12-31] VITALS: Ht 162.6 cm; Wt 55.5 kg
[~2019-12-31 16:47] MED LIST changes: +ACET-704 PO; +COLE1TAB PO; +DIAZ5TAB4 PO; +DIPH1TAB PO; +DULO30CA2 PO; +GLIP-26 PO; +GLIP5TAB10 PO; +HYDR-3108 PO; -HYDR10TA66 PO; +HYDR5TAB11 PO; -HYDR5TAB3 PO; +LACT1CAP2 PO; +LEVO500T8 PO; +LISI-338 PO; +MAGN500C10 PO; +MIDO10TA PO; +NITR100C62 PO; +ONDA4TAB12 PO
--- NOTE | 2019-12-31 17:15 | PHYS DOC ---
NIHSS - ED NIH Stroke Scale: NIH Stroke Scale Response (Comments) Value Level of Consciousness: 0 Alert/Responsive 0 LOC Questions: 0 Answers both correctly 0 LOC Commands: 0 Performs both tasks 0 Best Gaze: 0 Normal 0 Visual: 0 No visual loss 0 Facial Palsy: 0 Normal, symmetrical 0 Motor - Left Arm 1 Drifts, but can hold 1 Motor - Right Arm 0 No drift 0 Motor - Left Leg 2 Some effort 2 Motor: Right Leg 0 No drift 0 Limb Ataxia: 0 Absent 0 Sensory: 1 Mid to moderate loss 1 Best Language: 0 Normal 0 Dysathria: 0 Normal 0 Extinction and Inattention: 0 Normal 0 Total 4 ELISABETH ULLOA DO Dec 31, 2019 17:14
--- NOTE | 2019-12-31 17:17 | PHYS DOC ---
Past History Past Medical History: Diabetes Additional Past Medical Histor: [place] (ELISABETH ULLOA DO) Past Surgical History: Cholecystectomy, Tonsillectomy (ELISABETH ULLOA DO) Alcohol Use: None Drug Use: None (ELISABETH ULLOA DO) General Adult EDM: Chief Complaint: WEAKNESS/GENERALIZED HPI: HPI: The history was obtained from the patient and . Patient is a 69-year-old female with PMH [place]'s disease, diabetes who presents with a chief complaint of weakness. Patient states on Thursday evening she developed left upper extremity weakness. 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 She states yesterday she began developing left lower extremity weakness. She states is been more difficult to walk. reports that earlier 1 hour prior to arrival the patient was found confused sitting down outside. He states that she is not acting like herself. She denies any history of stroke. She denies any chest pain or shortness of breath. She denies any vomiting. She is unsure what her blood sugars been running recently. denies any dysarthria. Denies any syncope or headaches. Denies any falls or head trauma. She does not take any blood thinners. She also notes that her left upper extremity has decreased sensation to touch. No other complaints. (ELISABETH ULLOA DO) Review of Systems: Review of Systems: Constitutional: Denies fever or chills Eyes: Denies change in visual acuity HENT: Denies nasal congestion or sore throat Respiratory: Denies cough or shortness of breath Cardiovascular: Denies chest pain or edema GI: Denies abdominal pain, nausea, vomiting, bloody stools or diarrhea : Denies dysuria Musculoskeletal: Denies back pain or joint pain Integument: Denies rash Neurologic: Positive for weakness, sensory changes, confusion Endocrine: Denies polyuria or polydipsia Lymphatic: Denies swollen glands Psychiatric: Denies depression or anxiety (ELISABETH ULLOA DO) Heart Score: Risk Factors: Risk Factors: DM, Current or recent (<one month) smoker, HTN, HLP, family history of CAD, obesity. Risk Scores: Score 0 - 3: 2.5% MACE over next 6 weeks - Discharge Home Score 4 - 6: 20.3% MACE over next 6 weeks - Admit for Clinical Observation Score 7 - 10: 72.7% MACE over next 6 weeks - Early Invasive Strategies (ELISABETH ULLOA DO) Allergies: Allergies: Allergies Coded Allergies Type Severity Reaction Last Updated Verified insulin regular Allergy Severe Anaphylaxis 05/13/14 Yes Penicillins Allergy Intermediate 05/14/14 No I S O L A T I O N *CONTACT* Allergy Unknown 05/15/14 No (ELISABETH ULLOA DO) Physical Exam: PE: Constitutional: Well developed, well nourished, no acute distress, non-toxic appearance. [] HENT: Normocephalic, atraumatic, bilateral external ears normal, oropharynx moist, no oral exudates, nose normal. [] Eyes: PERRLA, EOMI, conjunctiva normal, no discharge. [] Neck: Normal range of motion, no tenderness, supple, no stridor. [] Cardiovascular:Heart rate regular rhythm, no murmur [] Lungs & Thorax: Bilateral breath sounds clear to auscultation [] Abdomen: Bowel sounds normal, soft, no tenderness, no masses, no pulsatile masses. [] Skin: Warm, dry, no erythema, no rash. [] Back: No tenderness, no CVA tenderness. [] Extremities: No tenderness, no cyanosis, no clubbing, ROM intact, no edema. [] Neurologic: Alert with intact cognitive function. No aphasia, dysarthria, or neglect. GCS 15. Pupils 3 mm briskly reactive b/l. No APD present. Cranial nerves 2-12 grossly intact; no facial asymmetry present, tongue midline, shoulder shrugging less on the left. Strength 3/5 on the left upper extremity and 4 out of 5 on the left lower extremity. Plus 5 out of 5 in the right upper and right lower extremities. Light touch sensation decreased in the left upper extremity. Cerebellar testing appropriate without evidence of dysdiadochokinesia. DTR's 2+ in all 4 extremities. Slight pronator drift on the left. Gait unsteady Psychologic: Affect normal, judgement normal, mood normal. [] (ELISABETH ULLOA DO) Current Patient Data: Labs: Laboratory Tests Test 12/31/19 16:59 Glucose (Fingerstick) 358 mg/dL (70-99) H (ELISABETH ULLOA DO) EKG: EKG: [] EKG consistent with normal sinus rhythm. Ventricular rate of 96 bpm. [place] normal. Intervals normal. No ST segment elevation appreciated. Artifact present in the inferior leads making interpretation difficult. 1816: EKG consistent with normal sinus rhythm. Ventricular rate of 91 bpm. [place] normal. Intervals normal. Small Q waves in lead III and aVF. No dynamic changes appreciated from previous today. (ELISABETH ULLOA DO) Radiology/Procedures: Radiology/Procedures: [][address] [address] IMAGING REPORT Signed PATIENT: CARLINE CAMARILLO ACCOUNT: [id number] : 1950 LOCATION: ER AGE: 69 SEX: F EXAM STATUS: REG ER ORD. PHYSICIAN: ELISABETH ULLOA DO REASON: LUE and LLE weakness, last known well PROCEDURE: CT CODE STROKE HEAD WO Exam: CT head INDICATION: Left upper extremity and left lower extremity weakness TECHNIQUE: Sequential axial images through the head were obtained without the administration of IV contrast. Comparisons: None FINDINGS: No focal parenchymal lesion or hemorrhage is identified. There is no midline shift or sulcal effacement. Patchy hypodensity in the periventricular white matter. Ackerman-white distinction is preserved. The ventricular system is within normal limits without compression hydrocephalus. The basal cisterns are well maintained. The visualized portions of the paranasal sinuses and mastoid air cells are well-pneumatized. No acute fractures. IMPRESSION: Mild small vessel ischemic change, technically age indeterminate without prior imaging. Exposure: One or more of the following in the visualized dose reduction techniques were utilized for this examination: 1. Automated exposure control 2. Adjustment of the MA and/or KV according to patient size Use of iterative of reconstructive technique FOR INTERNAL CODING PURPOSES Critical result: Findings discussed with ELISABETH ULLOA at 12/31/2019 5:17 PM. RESULT CODE: (C) Electronically signed by: Aurelio Poole MD (12/31/2019 5:21 PM) [id number] DICTATED AND SIGNED BY: AURELIO POOLE MD DATE: 12/31/19 1721 CC: KAM GARCIA MD; ELISABETH ULLOA DO ~ (ELISABETH ULLOA DO) Radiology/Procedures: IMAGING REPORT Signed PATIENT: CARLINE CAMARILLO ACCOUNT: [id number] : 1950 LOCATION: ER AGE: 69 SEX: F EXAM STATUS: REG ER ORD. PHYSICIAN: ELISABETH ULLOA DO REASON: LUE and LLE weakness. r/o LVO, OMNI 350, 60ml PROCEDURE: CT ANGIOGRAPHY HEAD AND NECK Exam: CTA head and neck INDICATION: CT head without contrast same day TECHNIQUE: Sequential axial images through the head and neck obtained following the administration of 60 mL of Omni 350 IV contrast. Sagittal and coronal reformatted images were reconstructed from the axial data and reviewed. 3-D reformatted images were reconstructed from the axial data and reviewed. Comparisons: CT head without contrast same day FINDINGS: CTA neck: Visualized portion of thoracic aorta are unremarkable. Standard three-vessel aortic arch anatomy. Right common carotid artery is patent without evidence of stenosis, occlusion or aneurysm. Mild calcified plaque at the origin of the right internal carotid artery without significant stenosis. Left common carotid artery is patent without evidence of stenosis, occlusion or aneurysm. Minimal plaque at the origin of the left internal carotid artery without significant stenosis. Right vertebral artery is patent to basilar confluence without evidence of stenosis, occlusion or aneurysm. Left vertebral artery is patent to basilar confluence without evidence of stenosis, occlusion or aneurysm. Visualized soft tissues are unremarkable. CTA HEAD: Minimal plaque at the origin of the right internal carotid artery without significant stenosis. Right MCA is patent. Right JONATHAN is patent. Minimal plaque at the cavernous segment of the left internal carotid artery without significant stenosis. Left MCA is patent. Left JONATHAN is patent. Basilar artery is patent without evidence of stenosis, occlusion or aneurysm. internet marketing consultant are patent bilaterally. origin of the right SENIOR PROGRAM ANALYST. IMPRESSION: 1. No large vessel occlusion. 2. Minimal plaque at the origin of the internal carotid arteries and cavernous segments of the internal carotid arteries bilaterally without significant stenosis. Exposure: One or more of the following in the visualized dose reduction techniques were utilized for this examination: 1. Automated exposure control 2. Adjustment of the MA and/or KV according to patient size 3. Use of iterative of reconstructive technique FOR INTERNAL CODING PURPOSES Critical result: Findings discussed with Dr. Peterson at 12/31/2019 7:30 PM. RESULT CODE: (C) Electronically signed by: Aurelio Poole MD (12/31/2019 7:39 PM) [id number] DICTATED AND SIGNED BY: AURELIO POOLE MD DATE: 12/31/191938 CC: KAM GARCIA MD; ELISABETH ULLOA DO; MARYA PETERSON DO ~ Impressions: Concern for right upper and lower extremity weakness in the setting of confusion, uncontrolled diabetes and hypomagnesemia. Urinalysis---. Head CT showed mild small vessel ischemic disease, CTA showed no large vessel occlusion. Chest x-ray with no acute process. Dr. Gonzales consulted neurology Dr. Sawyer, who recommended transfer and admission to [facility] for MRI and further medical work-up. Patient has been stabilized and transfer has been accepted by Dr. Gallardo. Pt agrees with this plan. (MARYA PETERSON DO) Course & Med Decision Making: Course & Med Decision Making Pertinent Labs and Imaging studies reviewed. (See chart for details) Discussed case with Dr. Sawyer at 1730. Recommended CT angiography of head and neck to rule out large vessel occlusion. If this is negative patient will be transferred to [facility] for further stroke work-up. She was given full dose aspirin. Patient is a 69-year-old female presents with chief complaint of slowly progressive left upper extremity and left lower extremity weakness over the past several days. Initial vital signs unremarkable. Notable blood glucose 354. Given my concern for neurologic symptoms CT stroke study was obtained. This is negative for large areas of ischemia. I did discuss case with on-call neurologist Dr. Sawyer. He recommended CTA imaging of the head neck to rule out large vessel occlusion. Remainder of labs been grossly unremarkable. At this time her remaining CT scan is pending. If this is negative she will be transferred to [facility] for further neurologic evaluation. He was given a full dose aspirin. Not a TPA candidate. Signout has been given to Dr. Peterson. We did discuss pertinent labs and imaging results, as well as plan of care. Please see their note for final disposition. (ELISABETH ULLOA DO) Dragon Disclaimer: Pasquale Disclaimer: This electronic medical record was generated, in whole or in part, using a voice recognition dictation system. (ELISABETH ULLOA DO) Departure Departure: Impression: Primary Impression: Left-sided weakness Additional Impressions: Uncontrolled diabetes mellitus Confusion Disposition: 05 TRANSFER OTHER (to [facility]) Admitting Physician: Other (Dr. Pimentel, [facility]) (MARYA PETERSON DO) Condition: STABLE Referrals: KAM GARCIA MD (PCP) Justification of Admission: Justification of Admission: Justification of Admission Dx: N/A (ELISABETH ULLOA DO) Justification of Admission Dx: Yes Stroke - Ischemic: Stroke-Ischemic (MARYA PETERSON DO) ELISABETH ULLOA DO Dec 31, 2019 17:17 MARYA PETERSON DO Dec 31, 2019 20:05
[2019-12-31] MEDS ORDERED: ASPIRIN CHEWABLE 81 MG TABLET. ONE (17:21)
--- NOTE | 2019-12-31 17:24 | RAD ---
Exam: CT head INDICATION: Left upper extremity and left lower extremity weakness TECHNIQUE: Sequential axial images through the head were obtained without the administration of IV contrast. Comparisons: None FINDINGS: No focal parenchymal lesion or hemorrhage is identified. There is no midline shift or sulcal effacement. Patchy hypodensity in the periventricular white matter. Ackerman-white distinction is preserved. The ventricular system is within normal limits without compression hydrocephalus. The basal cisterns are well maintained. The visualized portions of the paranasal sinuses and mastoid air cells are well-pneumatized. No acute fractures. IMPRESSION: Mild small vessel ischemic change, technically age indeterminate without prior imaging. Exposure: One or more of the following in the visualized dose reduction techniques were utilized for this examination: 1. Automated exposure control 2. Adjustment of the MA and/or KV according to patient size Use of iterative of reconstructive technique FOR INTERNAL CODING PURPOSES Critical result: Findings discussed with ELISABETH ULLOA at 12/31/2019 5:17 PM. RESULT CODE: (C) Electronically signed by: Aurelio Zavala MD (12/31/2019 5:21 PM) [id number]
[2019-12-31 17:31] LABS: CALCIUM 9.3 mg/dL (8.5-10.1); GFR 55.3; POTASSIUM 3.9 mmol/L (3.5-5.1)
--- NOTE | 2019-12-31 17:43 | RAD ---
Exam: Chest one view INDICATION: Left upper extremity weakness TECHNIQUE: Frontal view of the chest Comparisons: None FINDINGS: The cardiomediastinal silhouette and pulmonary vessels are within normal limits. The lung and pleural spaces are clear. IMPRESSION: No acute cardiopulmonary process. Electronically signed by: Aurelio Zavala MD (12/31/2019 5:40 PM) [id number]
[2019-12-31] MEDS ORDERED: IOHEXOL 350 MG/ML 100 ML VIAL. IV ONE (18:15)
[2019-12-31] MEDS ORDERED: CONTRAST GIVEN. MC PRN (18:15)
--- NOTE | 2019-12-31 19:43 | RAD ---
Exam: CTA head and neck INDICATION: CT head without contrast same day TECHNIQUE: Sequential axial images through the head and neck obtained following the administration of 60 mL of Omni 350 IV contrast. Sagittal and coronal reformatted images were reconstructed from the axial data and reviewed. 3-D reformatted images were reconstructed from the axial data and reviewed. Comparisons: CT head without contrast same day FINDINGS: CTA neck: Visualized portion of thoracic aorta are unremarkable. Standard three-vessel aortic arch anatomy. Right common carotid artery is patent without evidence of stenosis, occlusion or aneurysm. Mild calcified plaque at the origin of the right internal carotid artery without significant stenosis. Left common carotid artery is patent without evidence of stenosis, occlusion or aneurysm. Minimal plaque at the origin of the left internal carotid artery without significant stenosis. Right vertebral artery is patent to basilar confluence without evidence of stenosis, occlusion or aneurysm. Left vertebral artery is patent to basilar confluence without evidence of stenosis, occlusion or aneurysm. Visualized soft tissues are unremarkable. CTA HEAD: Minimal plaque at the origin of the right internal carotid artery without significant stenosis. Right MCA is patent. Right JONATHAN is patent. Minimal plaque at the cavernous segment of the left internal carotid artery without significant stenosis. Left MCA is patent. Left JONATHAN is patent. Basilar artery is patent without evidence of stenosis, occlusion or aneurysm. envelope fold operator are patent bilaterally. origin of the right TIME BROKER. IMPRESSION: 1. No large vessel occlusion. 2. Minimal plaque at the origin of the internal carotid arteries and cavernous segments of the internal carotid arteries bilaterally without significant stenosis. Exposure: One or more of the following in the visualized dose reduction techniques were utilized for this examination: 1. Automated exposure control 2. Adjustment of the MA and/or KV according to patient size 3. Use of iterative of reconstructive technique FOR INTERNAL CODING PURPOSES Critical result: Findings discussed with Dr. Burciaga at 12/31/2019 7:30 PM. RESULT CODE: (C) Electronically signed by: Aurelio Zavala MD (12/31/2019 7:39 PM) [id number]
[2019-12-31 20:39] LABS: BILIRUBIN,URINE NEG (NEG); CLARITY,URINE CLOUDY; COLOR,URINE YELLOW; GLUCOSE,URINE >=1000 mg/dL (NEG); UROBILINOGEN,URINE 0.2 mg/dL (0.2 mg/dL)
[2019-12-31 20:40] LABS: BACTERIA,URINE MANY /HPF (0-FEW); NITRITE,URINE POS (NEG); SQUAMOUS EPITHELIAL CELL,UR MOD /LPF; WBC,URINE >40 /HPF (0-4)
[2019-12-31 20:41] LABS: YEAST,URINE PRESENT /HPF
[2019-12-31 20:45] VITALS: BP 130/59
[2019-12-31 20:51] LABS: BASO # 0.1 x10^3/uL (0.0-0.2); BASO % 1 % (0-3); EOS # 0.3 x10^3/uL (0.0-0.7); EOS % 4 % (0-3); HEMATOCRIT 37.1 % (36.0-47.0); HEMOGLOBIN 12.1 g/dL (12.0-15.5); LYMPH # 2.1 x10^3/uL (1.0-4.8); LYMPH % 30 % (24-48); MEAN CORPUSCULAR HEMOGLOBIN 28 pg (25-35); MEAN CORPUSCULAR HGB CONC 33 g/dL (31-37); MEAN CORPUSCULAR VOLUME 87 fL (79-100); MONO # 0.8 x10^3/uL (0.0-1.1); MONO % 12 % (0-9); NEUT # 3.7 x10^3uL (1.8-7.7); NEUT % 53 % (31-73); PLATELET COUNT 390 x10^3/uL (140-400); WHITE BLOOD COUNT 6.9 x10^3/uL (4.0-11.0)
--- NOTE | 2019-12-31 20:54 | EKG ---
[address] [address] Test Date: 2019-12-31 Test Time: 18:16:28 Pat Name: CARLINE CAMARILLO Department: Room: Gender: F Quality Control Projectionist: ODETTE : 1950 Requested By: ELISABETH ULLOA Order Number: [id number] Reading MD: Measurements Intervals [place] Rate: 91 P: 61 MA: 162 QRS: 20 QRSD: 72 T: 63 QT: 334 QTc: 412 Interpretive Statements SINUS RHYTHM QRS(T) CONTOUR ABNORMALITY CONSISTENT WITH ANTEROSEPTAL INFARCT AGE UNDETERMINED ABNORMAL ECG RI6.02 Compared to ECG 12/31/2019 17:38:46 Myocardial infarct finding now present
== END 2019-12-31 21:00 | disposition short-term general hospital (02) ==
LOC: ER 16:47
DX: E11.65 Type 2 diabetes mellitus with hyperglycemia (principal); R53.1 Weakness; R41.0 Disorientation, unspecified; Z88.8 Allergy status to other drugs, medicaments and biological substances; Z88.0 Allergy status to penicillin
CPT/HCPCS: 36415; 70450; 70496; 70498; 71045; 80048; 81001; 82947; 83735; 84484; 85025; 85610; 85730; 87086; 93005; 99285; Q9967

== ENCOUNTER 2020-03-08 15:12 | Inpatient (IN) | payer MEDICARE, OTHER ==
[~2020-03-08] VITALS: Ht 162.6 cm; Wt 56.6 kg
[2020-03-08 15:50] VITALS: BP 144/79
--- NOTE | 2020-03-08 17:47 | NUR ---
PATIENT IS A 69 Y O FEMALE ARRIVED TO ROOM 113 DIRECT ADMIT VIA W/C ACCOMPANIED BY NURSING BONDING SUPERVISOR. VS OBTAINED AND ARE STABLE. PATIENT C/ O NAUSEA , ABD PAIN AND WEAKNESS, DENIED VOMITING, PT STATED SHE HAD LOOSE BOWEL STOOL TODAY FOR ABOUT 4 OR 5 TIMES, PATIENT STATED SHE IS INCONTINENT OF BOWEL MOVEMENT. IV ACCESS INITIATED WITH 20G IN R FA, FLUSHED WITH NS 10 ML, CURRENTLY SL. PT REQUESTED ICE CHIPS AND MEDS TO DECREASE NAUSEA. DR. GARCIA NOTIFIED. PATIENT IS CURRENTLY IN A BED RESTING. WILL CONTINUE TO MONITOR.
[2020-03-08] MEDS ORDERED: ONDANSETRON ODT 4 MG TAB.RAPDIS PO PRN (18:00)
[2020-03-08] MEDS ORDERED: MIDODRINE 5 MG TABLET PO SCH (18:00)
[2020-03-08] MEDS ORDERED: ACETAMINOPHEN/CODEINE 300/30MG TABLET PO PRN (18:00)
[2020-03-08] MEDS: ONDANSETRON ODT 4 MG TAB.RAPDIS PO PRN (18:00)
[2020-03-08] MEDS: IV NORMAL SALINE 1,000ML 1,000 ML IV SCH ×2 (18:01→22:49)
[2020-03-08 19:34] VITALS: BP 152/72
[2020-03-08 19:47] LABS: BILIRUBIN,URINE NEG (NEG); CLARITY,URINE CLOUDY; COLOR,URINE PINK; GLUCOSE,URINE >=1000 mg/dL (NEG)
[2020-03-08 19:48] LABS: BACTERIA,URINE MANY /HPF (0-FEW); NITRITE,URINE NEG (NEG); RBC,URINE TNTC /HPF (0-2); SQUAMOUS EPITHELIAL CELL,UR FEW /LPF; UROBILINOGEN,URINE 0.2 mg/dL (0.2 mg/dL)
--- NOTE | 2020-03-08 19:48 | RAD ---
CHEST PA LATERAL History: Reason: sob / Spl. Instructions: / History: Comparison: December 31, 2019 Findings: Lingular linear opacities. No pleural effusion. No pneumothorax. Normal heart size. Surgical clips right upper quadrant. Impression: 1. Lingular linear opacities, unchanged compared to prior CT. No new consolidation. Electronically signed by: Maico Benton DO (03/08/2020 7:45 PM) [facility] [place]
--- NOTE | 2020-03-08 19:54 | RAD ---
CT ABDOMEN PELVIS WO CONTRAST History: Reason: nausea and vomiting uncontrolled / Spl. Instructions: / History: Technique: Noncontrast examination of the abdomen and pelvis. Coronal and sagittal reconstructions were performed. Exposure: One or more of the following individualized dose reduction techniques were utilized for this examination: 1. Automated exposure control 2. Adjustment of the mA and/or kV according to patient size 3. Use of iterative reconstruction technique. Comparison: April 08, 2019 Findings: Lower chest: Lingular and right middle lobe partial atelectasis with bronchiectasis and scarring, unchanged compared to prior. No consolidation. No pleural effusion. Abdomen and pelvis: The liver, spleen, and adrenal glands are unremarkable. Regions of pancreatic atrophy, unchanged. Prior cholecystectomy. Moderate to severe left hydronephrosis with severe hydroureter. Left ureterovesical junction calculus or calculi measuring 8 mm in length by 4 mm transverse in maximal dimension. Perinephric and periureteral fat stranding. Additional bilateral nonobstructing intrarenal calculi. No right hydronephrosis. Moderate stool-filled colon. Proximal colectomy. No evidence of bowel obstruction. Mildly prominent retroperitoneal mesenteric lymph nodes, unchanged. No ascites. Unremarkable uterus and ovaries. Atheromatous plaque throughout the nonaneurysmal abdominal aorta and branch vessels. Bones: Grade 1 anterolisthesis L4 on L5. Multilevel lumbar spondylosis most prominent L4-5 and L5-S1. Impression: 1. 8 mm left ureterovesical junction obstructing calculus contributing to moderate to severe left hydronephrosis and severe left hydroureter as well as perinephric/periureteral fat stranding. 2. Additional bilateral nonobstructing intrarenal calculi. Electronically signed by: Maico Benton DO (03/08/2020 7:52 PM) [facility]
[2020-03-08 20:23] LABS: BASO # 0.1 x10^3/uL (0.0-0.2); BASO % 1 % (0-3); EOS % 0 % (0-3); HEMATOCRIT 40.3 % (36.0-47.0); HEMOGLOBIN 12.7 g/dL (12.0-15.5); LYMPH % 8 % (24-48); MEAN CORPUSCULAR HEMOGLOBIN 28 pg (25-35); MEAN CORPUSCULAR HGB CONC 32 g/dL (31-37); MEAN CORPUSCULAR VOLUME 89 fL (79-100); MONO # 1.1 x10^3/uL (0.0-1.1); MONO % 9 % (0-9); NEUT % 82 % (31-73); PLATELET COUNT 328 x10^3/uL (140-400); RED BLOOD COUNT 4.52 x10^6/uL (3.50-5.40); RED CELL DISTRIBUTION WIDTH 14.7 % (11.5-14.5); WHITE BLOOD COUNT 12.2 x10^3/uL (4.0-11.0)
[2020-03-08 20:33] LABS: ALBUMIN 3.4 g/dL (3.4-5.0); ALBUMIN/GLOBULIN RATIO 0.9 (1.0-1.7); CALCIUM 9.4 mg/dL (8.5-10.1); CREATININE 1.1 mg/dL (0.6-1.0); GFR 49.5; POTASSIUM 4.5 mmol/L (3.5-5.1); TOTAL BILIRUBIN 0.4 mg/dL (0.2-1.0); TOTAL PROTEIN 7.4 g/dL (6.4-8.2)
[2020-03-08] MEDS: diazePAM 5 MG TABLET. PO SCH (20:37)
[2020-03-08] MEDS: DIPHENOXYLATE/ATROPINE TABLET. PO SCH (20:37)
[2020-03-08] MEDS: MAGNESIUM OXIDE 400 MG TABLET PO SCH (20:37)
[2020-03-08] MEDS: DULoxetine HCL 30 MG CAPSULE.DR PO SCH (20:38)
[2020-03-08] MEDS: GABAPENTIN 300 MG CAPSULE. PO SCH (20:38)
[2020-03-08] MEDS: HYDROCORTISONE 10 MG TABLET PO SCH (20:41)
[2020-03-08] MEDS ORDERED: NITROFURANTOIN MONOHYD/M-CRYST 100 MG CAPSULE. PO SCH (21:00)
[2020-03-08] MEDS ORDERED: IPRATRPIUM/ALBUTEROL 0.5/2.5MG 3 ML NEBU. IH PRN (22:00)
[2020-03-08] MEDS ORDERED: INSULIN GLARGINE SYRINGE. SQ SCH (22:30)
[2020-03-08] MEDS ORDERED: MORPHINE SULFATE 2 MG/ML DISP.SYRIN. IV PRN (22:30)
[2020-03-08 22:33] VITALS: BP 121/61
[2020-03-09] MEDS: IV NORMAL SALINE 1,000ML 1,000 ML IV SCH ×3 (03:49→13:18)
[2020-03-09] MEDS: ONDANSETRON ODT 4 MG TAB.RAPDIS PO PRN (05:09)
[2020-03-09 05:17] VITALS: BP 105/64
--- NOTE | 2020-03-09 05:45 | EKG ---
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
[2020-03-09 06:33] LABS: CALCIUM 8.5 mg/dL (8.5-10.1); CREATININE 1.2 mg/dL (0.6-1.0); GFR 44.8; POTASSIUM 4.2 mmol/L (3.5-5.1)
[2020-03-09] MEDS: GABAPENTIN 300 MG CAPSULE. PO SCH ×3 (08:11→22:24)
[2020-03-09] MEDS: diazePAM 5 MG TABLET. PO SCH ×4 (08:11→22:24)
[2020-03-09] MEDS: LISINOPRIL 5 MG TABLET. PO SCH (08:11)
[2020-03-09] MEDS: MAGNESIUM OXIDE 400 MG TABLET PO SCH ×2 (08:11→22:24)
[2020-03-09] MEDS: DIPHENOXYLATE/ATROPINE TABLET. PO SCH ×4 (08:11→22:23)
[2020-03-09] MEDS: DULoxetine HCL 30 MG CAPSULE.DR PO SCH ×2 (08:11→22:24)
[2020-03-09] MEDS: FLUDROCORTISONE 0.1 MG TABLET PO SCH (08:12)
[2020-03-09] MEDS: HYDROCORTISONE 10 MG TABLET PO SCH ×2 (08:12→22:25)
--- NOTE | 2020-03-09 10:28 | RAD ---
EXAM: Supine AP view of the abdomen DATE: 03/09/2020 9:40 AM INDICATION: kidney stone - left ? COMPARISON: No Prior FINDINGS: Small calcification within the pelvis may correspond to the calculus seen on prior CT. Additional smaller calcifications project over both kidneys, better assessed on prior CT. No abnormal small or large bowel dilatation. Cholecystectomy clips are seen. Evaluation for free intraperitoneal gas is limited on this supine exam. IMPRESSION: Small calcification within the pelvis may correspond to the calculus seen on prior CT. Electronically signed by: Luis Haynes MD (03/09/2020 10:26 AM) [id number]
[2020-03-09 10:49] VITALS: BP 102/55
[2020-03-09 15:13] VITALS: BP 115/65
--- NOTE | 2020-03-09 16:52 | NUR ---
NURSING NOTE PT IN BED THIS AM UPON ASSESSMENT AND MEDICATION ADMINISTRATION. PT A&O. PT TAKES MEDS WHOLE. PT DIET ADVANCED THIS AM AND PT TOLERATING WELL. PT DENIES ANY NAUSEA OR VOMITING THIS AM AND TODAY THUS FAR. PT STATES SHE HAD DIARRHEA PRIOR TO ADMISSION AND IS CURRENTLY GETTING LOMOTIL. NO BM TODAY. WILL CONTINUE TO MONITOR. SARITA ROSE.
[2020-03-09 19:58] VITALS: BP 110/68
--- NOTE | 2020-03-09 21:08 | PN ---
DATE: SUBJECTIVE: The patient is feeling a little better this morning. She came in with severe nausea, vomiting, diarrhea and left flank pain. CT scan showed a large stone in the distal ureter at the ureterovesicular junction. The patient otherwise is feeling somewhat better as noted. Nausea and vomiting has ceased. OBJECTIVE: VITAL SIGNS: Blood pressure 115/60, respiratory rate 20, pulse 100, afebrile. LUNGS: Diminished, but clear. CARDIOVASCULAR: Exam is stable in this frail-appearing female looking older than stated age, but getting better hydrated. ABDOMEN: The patient's left flank under better control with IV pain medications. Her biggest problem is her diabetes and she claims that she cannot take acute insulin. IMPRESSION: Nephrolithiasis, hematuria, hyperglycemia, dehydration, abdominal pain. PLAN: As above. KAM GARCIA MD DR: DOROTEO/marky JOB#: [id number] / [id number]
[2020-03-09] MEDS: INSULIN GLARGINE SYRINGE. SQ SCH (22:21)
[2020-03-09] MEDS: LACTOBACILLUS RHAMNOSUS GG 1 CAPSULE. PO SCH (22:23)
[2020-03-09] MEDS: ZOLPIDEM 5 MG TABLET. PO SCH (22:24)
[2020-03-09 23:18] VITALS: BP 155/86
[2020-03-10 05:56] VITALS: BP 117/73
[2020-03-10] MEDS: IV NORMAL SALINE 1,000ML 1,000 ML IV SCH ×2 (06:34→22:00)
[2020-03-10 07:24] VITALS: BP 122/57
--- NOTE | 2020-03-10 07:25 | NUR ---
Found pt on the floor. Pt denies any pain. Pt stated, "I was putting my pole plugged in and I got twisted and fell." Bed alarm on patient. Will continue to monitor.
--- NOTE | 2020-03-10 07:28 | NUR ---
notified of fall. No new orders.
[2020-03-10] MEDS: DULoxetine HCL 30 MG CAPSULE.DR PO SCH ×2 (09:24→22:25)
[2020-03-10] MEDS: GABAPENTIN 300 MG CAPSULE. PO SCH ×3 (09:25→22:24)
[2020-03-10] MEDS: LACTOBACILLUS RHAMNOSUS GG 1 CAPSULE. PO SCH ×2 (09:25→22:23)
[2020-03-10] MEDS: MAGNESIUM OXIDE 400 MG TABLET PO SCH ×2 (09:25→22:25)
[2020-03-10] MEDS: LISINOPRIL 5 MG TABLET. PO SCH (09:26)
[2020-03-10] MEDS: HYDROCORTISONE 10 MG TABLET PO SCH ×2 (09:28→21:00)
[2020-03-10] MEDS: DIPHENOXYLATE/ATROPINE TABLET. PO SCH ×4 (09:32→22:24)
[2020-03-10] MEDS: diazePAM 5 MG TABLET. PO SCH (09:32)
[2020-03-10] MEDS: FLUDROCORTISONE 0.1 MG TABLET PO SCH (09:33)
[2020-03-10] MEDS: INSULIN GLARGINE SYRINGE. SQ SCH ×3 (09:47→22:27)
[2020-03-10 10:05] VITALS: BP 127/70
[2020-03-10 10:10] VITALS: BP 128/84
[2020-03-10] MEDS ORDERED: diazePAM 5 MG TABLET. PO PRN (11:15)
[2020-03-10 11:25] LABS: BASO # 0.1 x10^3/uL (0.0-0.2); BASO % 1 % (0-3); EOS # 0.3 x10^3/uL (0.0-0.7); EOS % 3 % (0-3); HEMATOCRIT 32.6 % (36.0-47.0); HEMOGLOBIN 10.4 g/dL (12.0-15.5); LYMPH # 1.1 x10^3/uL (1.0-4.8); LYMPH % 12 % (24-48); MEAN CORPUSCULAR HEMOGLOBIN 28 pg (25-35); MEAN CORPUSCULAR HGB CONC 32 g/dL (31-37); MEAN CORPUSCULAR VOLUME 88 fL (79-100); MONO # 1.1 x10^3/uL (0.0-1.1); MONO % 12 % (0-9); NEUT # 6.3 x10^3uL (1.8-7.7); NEUT % 72 % (31-73); PLATELET COUNT 260 x10^3/uL (140-400); RED BLOOD COUNT 3.68 x10^6/uL (3.50-5.40); RED CELL DISTRIBUTION WIDTH 14.4 % (11.5-14.5); WHITE BLOOD COUNT 8.8 x10^3/uL (4.0-11.0)
[2020-03-10] MEDS ORDERED: NALOXONE 0.4 MG/ML VIAL. IV ONE (11:30)
[2020-03-10 11:32] LABS: CALCIUM 8.1 mg/dL (8.5-10.1); CREATININE 0.9 mg/dL (0.6-1.0); GFR 62.5; POTASSIUM 3.7 mmol/L (3.5-5.1)
[2020-03-10] MEDS ORDERED: NALOXONE 0.4 MG/ML VIAL. IV PRN (13:45)
[2020-03-10 15:43] VITALS: BP 103/57
[2020-03-10] MEDS ORDERED: FLUMAZENIL 0.5 MG/5 ML VIAL. IV ONE (16:30)
[2020-03-10 16:32] LABS: BASO # 0.1 x10^3/uL (0.0-0.2); BASO % 1 % (0-3); EOS # 0.2 x10^3/uL (0.0-0.7); EOS % 2 % (0-3); HEMATOCRIT 33.7 % (36.0-47.0); HEMOGLOBIN 10.5 g/dL (12.0-15.5); LYMPH # 1.2 x10^3/uL (1.0-4.8); LYMPH % 16 % (24-48); MEAN CORPUSCULAR HEMOGLOBIN 28 pg (25-35); MEAN CORPUSCULAR HGB CONC 31 g/dL (31-37); MEAN CORPUSCULAR VOLUME 89 fL (79-100); MONO # 0.7 x10^3/uL (0.0-1.1); MONO % 9 % (0-9); NEUT # 5.7 x10^3uL (1.8-7.7); NEUT % 73 % (31-73); PLATELET COUNT 287 x10^3/uL (140-400); RED BLOOD COUNT 3.79 x10^6/uL (3.50-5.40); RED CELL DISTRIBUTION WIDTH 14.4 % (11.5-14.5); WHITE BLOOD COUNT 7.8 x10^3/uL (4.0-11.0)
[2020-03-10 16:37] LABS: CALCIUM 8.2 mg/dL (8.5-10.1); CREATININE 0.9 mg/dL (0.6-1.0); GFR 62.5; POTASSIUM 3.9 mmol/L (3.5-5.1)
[2020-03-10] MEDS ORDERED: ALBUTEROL SULFATE 8GM INHALER. INH PRN (17:00)
[2020-03-10 17:14] LABS: BGAS PH 7.36 (7.35-7.45)
[2020-03-10 18:02] LABS: INFLUENZA A PATIENT NEGATIVE (NEGATIVE); INFLUENZA B PATIENT NEGATIVE (NEGATIVE)
--- NOTE | 2020-03-10 18:03 | RAD ---
CHEST AP ONLY, RIGHT FEMUR XRAY, HIP RIGHT 2 VIEW One view chest: Clinical History: Reason: Short of air / Spl. Instructions: / History: Technique: AP view of the chest was obtained at 03/10/2020 3:55 PM. Comparison: March 08, 2017. Findings: The cardiomediastinal silhouette is normal. The pulmonary vasculature is normal. There is patchy opacity in the lung bases. Impression: Basal infiltrates likely discoid atelectasis. End impression Two-view right femur: AP lateral views The visualized osseous structures appear normal. IMPRESSION: No acute findings. End impression 2 views right hip: AP frog-leg views The visualized osseous structures appear grossly intact. The femoral acetabular relationship is normal. IMPRESSION: No acute findings. Electronically signed by: Wayne Rincon III, MD (03/10/2020 6:00 PM) [id number]
[2020-03-10 20:40] VITALS: BP 107/62
[2020-03-10] MEDS: ZOLPIDEM 5 MG TABLET. PO SCH (21:00)
--- NOTE | 2020-03-11 04:50 | NUR ---
Pt refused insulin last night after education regarding blood glucose level and insulin action. Pt A&O, resting comfortably in bed.
[2020-03-11 06:16] VITALS: BP 120/69
--- NOTE | 2020-03-11 06:23 | PN ---
DATE: SUBJECTIVE: A 69-year-old female, complete mental status change this morning. The patient is very agitated and not speaking very well, does answer some questions, but has trouble with her words, very out of control, ____ in her bed, did slip and fall, knocking things over, hit her right hip and leg area. The patient is not able to really describe any other problems, but she was in with a nephrolithiasis of her left ureter. Last blood pressure 120/70, respiratory rate 20, pulse 104, afebrile, 90% on 2 liters. We will get chest x-ray and x-rays of her hip ____ just in case and make further evaluation on her as indicated. Eyes are PERRL, but they are not reactive, say they are fixed maybe medication induced, hard to say. The patient has multiple medical problems. We will try to get a chest x-ray and make further evaluation on her as indicated. IMPRESSION: Change in mental status, here acutely; nephrolithiasis; hematuria; sinus tachycardia. PLAN: As above. KAM GARCIA MD DR: DOROTEO/marky JOB#: [id number] / [id number]
[2020-03-11 07:44] LABS: BASO # 0.1 x10^3/uL (0.0-0.2); BASO % 1 % (0-3); EOS # 0.2 x10^3/uL (0.0-0.7); EOS % 2 % (0-3); HEMATOCRIT 32.4 % (36.0-47.0); HEMOGLOBIN 10.2 g/dL (12.0-15.5); LYMPH # 1.8 x10^3/uL (1.0-4.8); LYMPH % 24 % (24-48); MEAN CORPUSCULAR HEMOGLOBIN 28 pg (25-35); MEAN CORPUSCULAR HGB CONC 32 g/dL (31-37); MEAN CORPUSCULAR VOLUME 88 fL (79-100); MONO % 13 % (0-9); NEUT # 4.4 x10^3uL (1.8-7.7); NEUT % 60 % (31-73); PLATELET COUNT 277 x10^3/uL (140-400); RED BLOOD COUNT 3.67 x10^6/uL (3.50-5.40); RED CELL DISTRIBUTION WIDTH 14.2 % (11.5-14.5); WHITE BLOOD COUNT 7.4 x10^3/uL (4.0-11.0)
[2020-03-11 07:57] LABS: CALCIUM 8.4 mg/dL (8.5-10.1); CREATININE 0.8 mg/dL (0.6-1.0); GFR 71.5; POTASSIUM 3.7 mmol/L (3.5-5.1)
[2020-03-11 09:28] VITALS: BP 120/69
[2020-03-11] MEDS: LACTOBACILLUS RHAMNOSUS GG 1 CAPSULE. PO SCH (09:28)
[2020-03-11] MEDS: MAGNESIUM OXIDE 400 MG TABLET PO SCH (09:28)
[2020-03-11] MEDS: GABAPENTIN 300 MG CAPSULE. PO SCH (09:28)
[2020-03-11] MEDS: LISINOPRIL 5 MG TABLET. PO SCH (09:28)
[2020-03-11] MEDS: DULoxetine HCL 30 MG CAPSULE.DR PO SCH (09:29)
[2020-03-11] MEDS: DIPHENOXYLATE/ATROPINE TABLET. PO SCH (09:31)
[2020-03-11] MEDS: INSULIN GLARGINE SYRINGE. SQ SCH (09:34)
[2020-03-11] MEDS: HYDROCORTISONE 10 MG TABLET PO SCH (09:34)
[2020-03-11] MEDS: FLUDROCORTISONE 0.1 MG TABLET PO SCH (09:35)
[2020-03-11] MEDS ORDERED: IPRATRPIUM/ALBUTEROL 0.5/2.5MG 3 ML NEBU. NEB SCH (10:30)
[2020-03-11] MEDS ORDERED: ALBU8HFA2 INH (11:29)
[2020-03-11] MEDS ORDERED: CEFD300C PO (11:29)
--- NOTE | 2020-03-11 14:55 | DS ---
DATE OF DISCHARGE: HOSPITAL COURSE: A 69-year-old female. She initially came in the office. She was extremely nauseated, vomiting, diarrhea; flank pain, left side, 10/10. The patient came in and showed a large stone in her distal ureter at the ureterovesicular junction. The patient was placed on copious amounts of fluids to help push that stone through as well as aggressive pain management. The patient also was noted to have a significant urinary tract infection of Citrobacter freundii and placed on appropriate IV antibiotic therapy. She did spike a temperature with this upwards of 100.2 and pulse of 120 at one time; however, she gradually increased her strength and the antibiotics seemed to do her quite well. She had one episode of falling. She was very lethargic and we monitored her quite well. She had to be given some Romazicon and that seemed to help her with the situation. She was given some MDI treatments. She was tested for COVID testing and the like just to be on the safe side. Her chest x-ray was basically unremarkable. Her fall was documented, and we did x-rays. Actually, she probably slipped on some spilled Coke that she had done there. Repeat KUB showed a small calcification, but at the time of discharge, the patient was in excellent condition. She had good color to her cheeks. She felt good. She had no abdominal discomfort at all even on compression. She had no problems with the pain in her left lower quadrant where previously the stone had been noted. As noted, the patient made excellent progress and she be discharged home. Her last hemoglobin was 10 and 32. Her electrolytes were all normal. Her blood sugars are a point of contention. She refuses to take short-acting insulin and at times where there was a problem, we used long-acting insulin for which she did not have any problems. The short-acting apparently causes her blood sugar to drop very quickly, so she is reluctant to take them and has nothing to do with ____ allergy and as noted, the patient had refused to take her insulin while in the hospital and at times the blood sugars did rise to over 380. Albumins were normal. BUN and creatinine of 16 and ____ came down to 11 and 0.8. IMPRESSION: Nephrolithiasis of the left ureter; dehydration; nausea, vomiting, abdominal pain. Type 2 diabetes, poorly controlled. Acute respiratory distress, urinary tract infection of Citrobacter freundii, history of cerebrovascular accident, history of [place]'s disease, history of orthostatic hypotension. The patient at time of discharge was in excellent condition. She was discharged home for followup as an outpatient. Continue on her home medications that were adjusted. PLAN: She will be on a diabetic diet and decreased activity, increase fluids, and monitor her for straining all urine as an outpatient. KAM GARCIA MD DR: DOROTEO/nts JOB#: [id number] / [id number]
--- NOTE | 2020-03-12 12:50 | NUR ---
IP: attempt to notify patient of COVID result, left message to call back.
== END 2020-03-11 13:30 | disposition home or self-care (01) | DRG 871 ==
LOC: 1 SOUTH 15:12
PROVIDERS: ADMIT Family Medicine; ATTEND Family Medicine
DX: A41.9 Sepsis, unspecified organism (principal); G93.41 Metabolic encephalopathy; N39.0 Urinary tract infection, site not specified; N20.2 Calculus of kidney with calculus of ureter; E27.1 Primary adrenocortical insufficiency; E11.65 Type 2 diabetes mellitus with hyperglycemia; I95.1 Orthostatic hypotension; E86.0 Dehydration; W01.0XXA Fall on same level from slipping, tripping and stumbling without subsequent striking against object, initial encounter; Z20.828 Contact with and (suspected) exposure to other viral communicable diseases; Z86.73 Personal history of transient ischemic attack (TIA), and cerebral infarction without residual deficits; Z88.8 Allergy status to other drugs, medicaments and biological substances; Z79.899 Other long term (current) drug therapy; R06.03 Acute respiratory distress; R00.0 Tachycardia, unspecified; Y93.89 Activity, other specified; Y92.89 Other specified places as the place of occurrence of the external cause; Y99.8 Other external cause status
CPT/HCPCS: 36415; 36600; 71045; 71046; 73502; 73552; 74018; 74176; 80048; 80053; 81001; 82550; 82803; 82947; 83605; 83690; 84484; 85025; 87040; 87077; 87086; 87186; 87804; 93005; J0696; J1815; J1956; J2310; J7613; Q0162; U0003; J7030

== ENCOUNTER 2020-03-12 11:07 | Inpatient (IN) | payer MEDICARE, OTHER ==
[~2020-03-12] VITALS: Ht 162.6 cm; Wt 59.8 kg
[~2020-03-12 11:07] MED LIST changes: +ALBU8HFA2 INH; +CEFD300C PO
[2020-03-12] MEDS ORDERED: IV NORMAL SALINE 1,000ML 1,000 ML IV ONE (11:30)
--- NOTE | 2020-03-12 11:39 | PHYS DOC ---
Past History Past Medical History: Arthritis, Diabetes Additional Past Medical Histor: Ryan's Past Surgical History: Cholecystectomy, Tonsillectomy, Other Additional Past Surgical Histo: kidney stents Alcohol Use: None Drug Use: None General Adult EDM: Chief Complaint: MULTIPLE COMPLAINTS HPI: HPI: 69-year-old female returns to the emergency room after 2 falls at home. The patient was recently admitted to this hospital and was discharged yesterday. She was admitted for abdominal pain and possible kidney stone. She was feeling better when she went home. Last night she started to have some generalized abdominal pain again. She went to go to the restroom and fell. She did not have any injuries at that time. Today, the patient has had uncontrollable bowel movements. She cannot prevent stool from coming out. She had a second fall. She denies loss of consciousness with either of these episodes. She does not really have abdominal pain at this time. She is most concerned about the uncontrolled diarrhea and falling. On arrival her blood sugar was over 300. Patient is known diabetic. She states being allergic to insulin. Review of Systems: Review of Systems: Constitutional: Denies fever or chills. Falls x2 Eyes: Denies change in visual acuity HENT: Denies nasal congestion or sore throat Respiratory: Denies cough or shortness of breath Cardiovascular: Denies chest pain or edema GI: Diarrhea. Denies abdominal pain, nausea, vomiting, bloody stools. : Denies dysuria Musculoskeletal: Denies back pain or joint pain Integument: Denies rash Neurologic: Denies headache, focal weakness or sensory changes Endocrine: Denies polyuria or polydipsia Lymphatic: Denies swollen glands Psychiatric: Denies depression or anxiety Current Medications: Current Meds: Current Medications Medications (Trade) Dose Ordered Sig/Berta Start Time Stop Time Status Last Admin Dose Admin Sodium Chloride 1,000 ml @ 1,000 mls/hr 1X ONCE 03/12/20 11:30 03/12/20 12:29 Allergies: Allergies: Allergies Coded Allergies Type Severity Reaction Last Updated Verified insulin regular Allergy Severe Anaphylaxis 05/13/14 Yes Penicillins Allergy Intermediate 05/14/14 No I S O L A T I O N *CONTACT* Allergy Unknown 05/15/14 No Physical Exam: PE: Constitutional: Well developed, well nourished, no acute distress, non-toxic appearance. [] HENT: Normocephalic, atraumatic, bilateral external ears normal, oropharynx moist, no oral exudates, nose normal. [] Eyes: PERRLA, EOMI, conjunctiva normal, no discharge. [] Neck: Normal range of motion, no tenderness, supple, no stridor. [] Cardiovascular: Heart rate 106, regular rhythm, no murmur [] Lungs & Thorax: Bilateral breath sounds clear to auscultation [] Abdomen: Bowel sounds normal, soft, no tenderness, no masses, no pulsatile masses. [] Skin: Warm, dry, no erythema, no rash. [] Back: No tenderness, no CVA tenderness. [] Extremities: No tenderness, no cyanosis, no clubbing, ROM intact, no edema. [] Neurologic: Alert and oriented X 3, normal motor function, normal sensory function, no focal deficits noted. [] Psychologic: Affect tearful, judgement normal, mood anxious. [] Current Patient Data: Labs: Laboratory Tests Test 03/12/20 11:13 Glucose (Fingerstick) 317 mg/dL (70-99) H EKG: EKG: Sinus tachycardia, rate 106,, no ST elevation or depression, right bundle branch block [] Radiology/Procedures: Radiology/Procedures: [] Heart Score: Risk Factors: Risk Factors: DM, Current or recent (<one month) smoker, HTN, HLP, family history of CAD, obesity. Risk Scores: Score 0 - 3: 2.5% MACE over next 6 weeks - Discharge Home Score 4 - 6: 20.3% MACE over next 6 weeks - Admit for Clinical Observation Score 7 - 10: 72.7% MACE over next 6 weeks - Early Invasive Strategies Course & Med Decision Making: Course & Med Decision Making Pertinent Labs and Imaging studies reviewed. (See chart for details) The patient's labs are significant for potassium 2.8. I will place this may need. The patient also has a low sodium. Her head CT is negative for acute findings. She has not had diarrhea in the emergency room. I spoke with Dr. Nina and he has accepted the patient for admission. [] Pasquale Disclaimer: Pasquale Disclaimer: This electronic medical record was generated, in whole or in part, using a voice recognition dictation system. Departure Departure: Impression: Primary Impression: Hypokalemia Additional Impression: Hyponatremia Disposition: 01 DC HOME SELF CARE/HOMELESS Condition: STABLE Referrals: KAM NINA MD (PCP) JAKE WILLS DO Mar 12, 2020 11:39
--- NOTE | 2020-03-12 11:48 | RAD ---
EXAM: CHEST AP ONLY 03/12/2020 11:31 AM CLINICAL INDICATION:Fall COMPARISON:Chest 03/10/2020 TECHNIQUE:AP upright view the chest FINDINGS:The heart and mediastinum are normal. Lungs are well-expanded. No consolidation, pleural effusion, or pneumothorax. No acute osseous abnormality. IMPRESSION:No acute cardiopulmonary abnormality. Electronically signed by: Aspen Dong MD (03/12/2020 11:45 AM) [id number]
[2020-03-12 11:54] LABS: BASO % 1 % (0-3); EOS # 0.1 x10^3/uL (0.0-0.7); EOS % 2 % (0-3); HEMOGLOBIN 11.5 g/dL (12.0-15.5); LYMPH # 1.8 x10^3/uL (1.0-4.8); LYMPH % 21 % (24-48); MEAN CORPUSCULAR HEMOGLOBIN 28 pg (25-35); MEAN CORPUSCULAR HGB CONC 32 g/dL (31-37); MEAN CORPUSCULAR VOLUME 87 fL (79-100); MONO # 1.3 x10^3/uL (0.0-1.1); MONO % 15 % (0-9); NEUT # 5.5 x10^3uL (1.8-7.7); NEUT % 62 % (31-73); PLATELET COUNT 316 x10^3/uL (140-400); RED BLOOD COUNT 4.13 x10^6/uL (3.50-5.40); RED CELL DISTRIBUTION WIDTH 14.4 % (11.5-14.5); WHITE BLOOD COUNT 8.8 x10^3/uL (4.0-11.0)
--- NOTE | 2020-03-12 12:09 | RAD ---
EXAM: CT head without contrast INDICATION: Fall x2 COMPARISON: CT head 12/31/2019 TECHNIQUE: Axial CT imaging through the head without intravenous contrast. One or more of the following individualized dose reduction techniques were utilized for this examination: 1. Automated exposure control 2. Adjustment of the mA and/or kV according to patient size 3. Use of iterative reconstruction technique. FINDINGS: The ventricles and sulci are mildly enlarged, reflecting age-related volume loss. Baltazar-white matter differentiation is maintained. There is no intracranial hemorrhage, acute infarct, or mass lesion. Basal cisterns are clear. The skull and scalp are intact. Chronic secretions are seen in the left sphenoid sinus and posterior ethmoid air cells. Globes and orbits are intact. IMPRESSION: No acute intracranial abnormality. Electronically signed by: Aspen Dong MD (03/12/2020 12:06 PM) [id number]
[2020-03-12 12:12] LABS: ALBUMIN 2.8 g/dL (3.4-5.0); ALBUMIN/GLOBULIN RATIO 0.7 (1.0-1.7); CREATININE 1.1 mg/dL (0.6-1.0); GFR 49.5; TOTAL BILIRUBIN 0.2 mg/dL (0.2-1.0); TOTAL PROTEIN 7.1 g/dL (6.4-8.2)
[2020-03-12] MEDS ORDERED: POTASSIUM CL 40MEQ IN 0.9%NACL 1,000 ML IV ONE (12:30)
[2020-03-12 13:00] VITALS: BP 118/70
[2020-03-12] MEDS ORDERED: ONDANSETRON ODT 4 MG TAB.RAPDIS PO PRN (13:15)
[2020-03-12] MEDS ORDERED: ELECTROLYTE (ICU) PROTOCOL. MC PRN (13:15)
[2020-03-12] MEDS ORDERED: ALBUTEROL SULFATE 8GM INHALER. INH PRN (13:15)
[2020-03-12 13:19] LABS: POTASSIUM 2.8 mmol/L (3.5-5.1)
[2020-03-12 13:25] LABS: BACTERIA,URINE 0 /HPF (0-FEW); BILIRUBIN,URINE NEG (NEG); CLARITY,URINE HAZY; COLOR,URINE YELLOW; GLUCOSE,URINE >=1000 mg/dL (NEG); NITRITE,URINE NEG (NEG); SQUAMOUS EPITHELIAL CELL,UR MOD /LPF; UROBILINOGEN,URINE 0.2 mg/dL (0.2 mg/dL); WBC,URINE 20-40 /HPF (0-4); YEAST,URINE PRESENT /HPF
[2020-03-12] MEDS ORDERED: DULoxetine HCL 30 MG CAPSULE.DR PO SCH (13:30)
--- NOTE | 2020-03-12 13:40 | NUR ---
IP: nursing staff notified of COVID result.
[2020-03-12] MEDS ORDERED: ALBUTEROL SULFATE 2.5 MG/3 ML NEBU. NEB PRN (13:45)
[2020-03-12] MEDS ORDERED: IPRATRPIUM/ALBUTEROL 0.5/2.5MG 3 ML NEBU. IH SCH (14:00)
[2020-03-12] MEDS ORDERED: ONDANSETRON PF 4 MG/2 ML VIAL. IVP PRN (15:00)
[2020-03-12] MEDS ORDERED: DEXTROSE 50% 25 GM / 50ML DISP.SYRIN. IV PRN (15:00)
--- NOTE | 2020-03-12 15:00 | EKG ---
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
--- NOTE | 2020-03-12 15:24 | NUR ---
PT admitted to ICU bed 4. Pt is able to verbalize understanding of poc and orientation to unit. Pt dc [place] [facility] and already had a fall at home. Pt reported being incontinent of stool at home. Dr Nina already saw patient today. Will continue to monitor. Sheng PADILLA
[2020-03-12] MEDS: GABAPENTIN 100 MG CAPSULE. PO SCH ×2 (16:36→20:42)
[2020-03-12] MEDS: POTASSIUM CHLORIDE 20 MEQ TABLET.ER. PO SCH ×4 (16:36→22:29)
[2020-03-12] MEDS ORDERED: DIPHENOXYLATE/ATROPINE TABLET. PO SCH (17:00)
[2020-03-12] MEDS ORDERED: DIPHENOXYLATE/ATROPINE TABLET. PO PRN (17:15)
[2020-03-12] MEDS ORDERED: IPRATRPIUM/ALBUTEROL 0.5/2.5MG 3 ML NEBU. IH PRN (17:30)
[2020-03-12] MEDS: INSULIN LISPRO 300 UNITS/3 ML VIAL. SQ SCH (17:37)
[2020-03-12 17:55] VITALS: BP 116/61
[2020-03-12] MEDS: MIDODRINE 5 MG TABLET PO SCH (18:00)
--- NOTE | 2020-03-12 18:58 | HP ---
ADMIT DATE: 03/12/2020 HISTORY OF PRESENT ILLNESS: A 69-year-old female recently discharged apparently went home and started to fall again. The patient had been in good condition when she left, but started to take all her blood sugar medications. She refused to take any type of insulin for possible reaction. The patient did have some generalized abdominal pain. She had several bouts of diarrhea. There was no loss of consciousness when she came in through the Emergency Room. Her potassium, which was normal the day before, came down to 2.8., sodium of 129, and blood sugar 317. The patient denied any nausea or vomiting and because of her low potassium, the patient was admitted to the hospital for further evaluation and treatment thereof. The patient denied chest pain or shortness of breath. 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 PNEUMOCOCCAL VACCINATIONS: Up-to-date. FAMILY HISTORY: Positive for cancer. ALLERGIES: PENICILLIN. SOCIAL HISTORY: The patient denies smoking, alcohol or drug use. REVIEW OF SYSTEMS: Denies any headaches, visual changes, blurred vision, or double vision. ___ and on all of a sudden she does felt extremely weak and tired and began to have diarrhea and began to fall. PHYSICAL EXAMINATION: VITAL SIGNS: Blood pressure 146/70, respiratory rate 16, pulse 103, came down to 88, temperature afebrile, 98, and oxygen saturation up to 97%. HEENT: The patient's head was atraumatic, normocephalic. Eyes: PERRLA without jaundice. Mouth and throat were normal. NECK: Supple, no JVD or thyromegaly. LUNGS: Diminished throughout, but basically clear. CARDIOVASCULAR: Regular sinus rhythm, S1, S2, without murmur, rub, thrill, or extra heart sounds. ABDOMEN: Soft, diffuse tenderness. No rebounding or guarding. Positive bowel sounds, no hepatosplenomegaly was noted. EXTREMITIES: No clubbing, cyanosis or edema. NEUROLOGIC: The patient is alert and oriented x 3, although she feels weak and tired. LABORATORY DATA: The patient's white count was 8.8 and hemoglobin 11.5. As noted, sodium 129, 2.8, 18 and 1.1, blood sugar 317, albumin low at 2.8. The patient otherwise continued to be monitored carefully. IMPRESSION AND PLAN: Hypokalemia, hyponatremia, diarrhea, [place]'s disease. The patient will continue to be monitored carefully. Given additional supplementation of her potassium, given her low-dose insulin even though she says she is allergic to it. She probably isn't and cortisol levels will be obtained and make further evaluation on her as indicated. Also, C. difficile will be obtained as well as a urine culture and sensitivity. KAM GARCIA MD DR: DOROTEO/marky JOB#: [id number] / [id number]
[2020-03-12 19:34] VITALS: BP 97/49
[2020-03-12 19:53] LABS: CALCIUM 8.7 mg/dL (8.5-10.1); CREATININE 1.2 mg/dL (0.6-1.0); GFR 44.8
[2020-03-12] MEDS: COLESTIPOL HCL 1 GM TABLET. PO SCH (20:41)
[2020-03-12] MEDS: HYDROCORTISONE 10 MG TABLET PO SCH (20:41)
[2020-03-12] MEDS: DULoxetine HCL 30 MG CAPSULE.DR PO SCH (20:42)
[2020-03-12] MEDS: LACTOBACILLUS RHAMNOSUS GG 1 CAPSULE. PO SCH (20:42)
[2020-03-12] MEDS: CEFDINIR 300 MG CAPSULE PO SCH (20:42)
[2020-03-12 23:06] VITALS: BP 129/59
[2020-03-13 05:33] VITALS: BP 119/66
--- NOTE | 2020-03-13 05:37 | NUR ---
Pt slept throughout the night, up intermittently to [facility] to void with standby assist. Continent of bowel and bladder this shift. No loose stools noted. Pt tolerated supplemental potassium well. Labs scheduled for this AM.
[2020-03-13] MEDS: levoFLOXacin 250 MG TABLET PO SCH ×2 (06:16→07:45)
[2020-03-13] MEDS: MIDODRINE 5 MG TABLET PO SCH ×3 (06:16→18:00)
[2020-03-13 06:22] LABS: BASO % 1 % (0-3); EOS # 0.2 x10^3/uL (0.0-0.7); EOS % 4 % (0-3); HEMATOCRIT 34.7 % (36.0-47.0); HEMOGLOBIN 10.7 g/dL (12.0-15.5); LYMPH # 1.9 x10^3/uL (1.0-4.8); LYMPH % 28 % (24-48); MEAN CORPUSCULAR HEMOGLOBIN 27 pg (25-35); MEAN CORPUSCULAR HGB CONC 31 g/dL (31-37); MEAN CORPUSCULAR VOLUME 88 fL (79-100); MONO # 0.9 x10^3/uL (0.0-1.1); MONO % 13 % (0-9); NEUT # 3.6 x10^3uL (1.8-7.7); NEUT % 54 % (31-73); PLATELET COUNT 317 x10^3/uL (140-400); RED BLOOD COUNT 3.94 x10^6/uL (3.50-5.40); RED CELL DISTRIBUTION WIDTH 14.2 % (11.5-14.5); WHITE BLOOD COUNT 6.6 x10^3/uL (4.0-11.0)
[2020-03-13 06:28] LABS: CALCIUM 8.9 mg/dL (8.5-10.1); CREATININE 0.8 mg/dL (0.6-1.0); GFR 71.5
[2020-03-13] MEDS: MAGNESIUM OXIDE 400 MG TABLET PO SCH ×2 (07:45→20:08)
[2020-03-13] MEDS: LISINOPRIL 5 MG TABLET. PO SCH (07:45)
[2020-03-13] MEDS: COLESTIPOL HCL 1 GM TABLET. PO SCH (07:45)
[2020-03-13] MEDS: DULoxetine HCL 30 MG CAPSULE.DR PO SCH ×2 (07:46→20:08)
[2020-03-13] MEDS: LINAGLIPTIN 5 MG TABLET PO SCH (07:46)
[2020-03-13] MEDS: LACTOBACILLUS RHAMNOSUS GG 1 CAPSULE. PO SCH ×2 (07:46→20:08)
[2020-03-13] MEDS: HYDROCORTISONE 10 MG TABLET PO SCH ×2 (08:00→20:08)
[2020-03-13] MEDS: INSULIN LISPRO 300 UNITS/3 ML VIAL. SQ SCH ×3 (08:00→17:13)
[2020-03-13] MEDS: FLUDROCORTISONE 0.1 MG TABLET PO SCH (09:00)
[2020-03-13] MEDS: GABAPENTIN 100 MG CAPSULE. PO SCH ×3 (09:00→20:08)
[2020-03-13] MEDS: CEFDINIR 300 MG CAPSULE PO SCH (09:00)
[2020-03-13 11:38] VITALS: BP 125/56
--- NOTE | 2020-03-13 11:58 | PN ---
DATE: SUBJECTIVE: A 69-year-old female who had left in good health; however, began to have problems with falling at home. She refused to take insulin prior to this and when she came in, her blood sugar was up to 300 and her potassium was 2.8, both of which had been normal when she had been discharged. The problem was she was falling. She had several bouts of diarrhea, probably related to her oral hypoglycemic agents since she refused to take injections. She has stuck with these medications, which we believe would cause bowel problems. The patient also has [place]'s disease and we are adjusting her medications and checking her cortisol levels. OBJECTIVE: VITAL SIGNS: Her blood pressure however seemed to be stable 120/60, respiratory rate 17, pulse 88, afebrile. GENERAL: The patient is alert and oriented, says she feels better. LUNGS: Diminished throughout, poor movement of air, but basically clear. CARDIOVASCULAR: Regular sinus rhythm. ABDOMEN: Soft, nontender. EXTREMITIES: No clubbing, cyanosis, nor edema. NEUROLOGIC: The patient is alert, in good spirits. Good color. LABORATORY DATA: The patient's white count 6, hemoglobin 10 and 34. The patient's sodium has come up from 2.8 up to 5 and 139 BUN, creatinine is stable as well. Her sugars have come down gradually from over 330 down to 182 and this is with about 3-4 units of insulin. The patient has not had any further stools that nurses are aware of and the patient will continue to be monitored on that situation as well as if the C. difficile results come back in. Obviously these other medications that could be causing her problems with her diarrhea and those all will be evaluated. Her pain seems to be under reasonably good control. She does not seem to have any noticeable skin breakdowns and she will continue to be monitored, recheck her electrolytes. I wanted her to have physical and occupational therapy to monitor her gait and overall integrity. IMPRESSION: Therefore, of hypokalemia, hyperglycemia, generalized weakness, diarrhea, [place]'s disease. PLAN: Her head CT scan was negative and we will continue to monitor with PT, OT and the like. Cortisol levels are pending. KAM GARCIA MD DR: DOROTEO/marky JOB#: [id number] / [id number]
[2020-03-13 16:00] VITALS: BP 128/86
--- NOTE | 2020-03-13 17:25 | NUR ---
Pt feeling better today. PT up to bedside commode frequently and encouraged to move around. PT is able to verbalize understanding of poc. Sheng STEIN
[2020-03-13 19:20] VITALS: BP 117/57
[2020-03-13 23:06] VITALS: BP 142/72
--- NOTE | 2020-03-14 05:15 | NUR ---
Shift Note: pt a/o x4, VSS, no c/o pain or n/v at this time, no further diarrhea during night (last BM 03/12), pt states she is feeling better and ready to go home today, pt may require more education regarding insulin and sliding scale at time of discharge if prescribed.
[2020-03-14] MEDS: MIDODRINE 5 MG TABLET PO SCH (06:02)
[2020-03-14 06:29] LABS: CREATININE 0.7 mg/dL (0.6-1.0); GFR 83.5; POTASSIUM 4.1 mmol/L (3.5-5.1)
[2020-03-14 06:52] LABS: HEMATOCRIT 34.5 % (36.0-47.0); HEMOGLOBIN 10.9 g/dL (12.0-15.5); MEAN CORPUSCULAR HEMOGLOBIN 27 pg (25-35); MEAN CORPUSCULAR HGB CONC 32 g/dL (31-37); MEAN CORPUSCULAR VOLUME 86 fL (79-100); RED BLOOD COUNT 3.99 x10^6/uL (3.50-5.40); RED CELL DISTRIBUTION WIDTH 14.7 % (11.5-14.5); WHITE BLOOD COUNT 6.1 x10^3/uL (4.0-11.0)
[2020-03-14 06:53] LABS: PLATELET COUNT 360 x10^3/uL (140-400)
[2020-03-14] MEDS: HYDROCORTISONE 10 MG TABLET PO SCH (08:00)
[2020-03-14] MEDS: MAGNESIUM OXIDE 400 MG TABLET PO SCH (09:03)
[2020-03-14] MEDS: LINAGLIPTIN 5 MG TABLET PO SCH (09:03)
[2020-03-14] MEDS: DULoxetine HCL 30 MG CAPSULE.DR PO SCH (09:03)
[2020-03-14] MEDS: LISINOPRIL 5 MG TABLET. PO SCH (09:03)
[2020-03-14] MEDS: levoFLOXacin 250 MG TABLET PO SCH (09:03)
[2020-03-14] MEDS: LACTOBACILLUS RHAMNOSUS GG 1 CAPSULE. PO SCH (09:03)
[2020-03-14] MEDS: GABAPENTIN 100 MG CAPSULE. PO SCH (09:03)
[2020-03-14] MEDS: FLUDROCORTISONE 0.1 MG TABLET PO SCH (09:03)
[2020-03-14] MEDS: INSULIN LISPRO 300 UNITS/3 ML VIAL. SQ SCH ×2 (09:10→12:00)
[2020-03-14 10:00] VITALS: BP 141/91
[2020-03-14] MEDS ORDERED: INSU100I11 SQ (10:09)
[2020-03-14] MEDS ORDERED: LEVO250T7 PO (10:10)
[2020-03-14 10:32] LABS: % ATYL 1 % (0-0); % BANDS 1 % (0-9); % EOS 1 % (0-5); % LYMPHS 33 % (24-48); % MONOS 13 % (0-10); % SEGS 51 % (35-66)
[2020-03-14 10:33] LABS: ANISOCYTOSIS SLIGHT; HYPOCHROMIA SLIGHT; MICROCYTOSIS SLIGHT; PLT ESTIMATE ADEQUATE (ADEQUATE); POLYCHROMASIA PRESENT
--- NOTE | 2020-03-14 12:09 | NUR ---
PT dc to home. PT is able to verbalize understanding of poc and discharge. was present for discharge for discharge instructions and insulin teaching. Did show how to give patient insulin. He was able to demonstrate how to give her insulin and what dose to give based on sliding scale. PT given Rx and left via [place] with driving. Sheng STEIN
--- NOTE | 2020-03-20 22:57 | DS ---
DATE OF DISCHARGE: 03/14/2020 HOSPITAL COURSE: A 69-year-old female, the patient had gone home and began to fall all over her home. She had difficulty standing up. Her potassium had dropped and she began to have diarrhea after she left the previous hospitalization. The patient's potassium came down to 2.8, sodium of 129 and her sugar was 317. As a result of this hypokalemia and hyponatremia, she has a history of Ryan's disease. The patient made good progress during the rest of her hospitalization. As we corrected those deficiencies, brought her blood sugar under control and got her lab under good control. Her potassium came up from 2.9 to 4.1, sodium of 136 and her blood sugar came down to 110. Her cortisol p.m. sample was 13 and her a.m. sample was also within range. The patient made good progress. She received physical and occupational therapy. Cardiac enzymes were negative and the patient was discharged home in good condition. See MRAD. Heart healthy diabetic diet. She never wanted to use insulin before and refused. Through nursing care, Cely, she made excellent progress. So, hypokalemia along with her change in mental status, diarrhea, gait disturbance, type 1 diabetes, uncontrolled, Torrance's disease, anemia of chronic disease, hypokalemia and severe protein malnutrition. PLAN: The patient will be discharged home. Follow up as an outpatient and make further evaluation on her as an outpatient. KAM GARCIA MD DR: DOROTEO/marky JOB#: [id number] / [id number]
== END 2020-03-14 12:30 | disposition home or self-care (01) | DRG 637 ==
LOC: ER 11:07 → ICU 12:40
PROVIDERS: ADMIT Family Medicine; ATTEND Family Medicine
DX: E10.65 Type 1 diabetes mellitus with hyperglycemia (principal); E43 Unspecified severe protein-calorie malnutrition; E27.1 Primary adrenocortical insufficiency; E87.1 Hypo-osmolality and hyponatremia; E87.6 Hypokalemia; D63.8 Anemia in other chronic diseases classified elsewhere; W18.30XA Fall on same level, unspecified, initial encounter; M19.90 Unspecified osteoarthritis, unspecified site; Y93.89 Activity, other specified; Y99.8 Other external cause status; Y92.009 Unspecified place in unspecified non-institutional (private) residence as the place of occurrence of the external cause; Z90.49 Acquired absence of other specified parts of digestive tract; Z88.0 Allergy status to penicillin; Z88.8 Allergy status to other drugs, medicaments and biological substances; Z68.22 Body mass index [BMI] 22.0-22.9, adult; R19.7 Diarrhea, unspecified
CPT/HCPCS: 36415; 70450; 71045; 80048; 80053; 81001; 82533; 82947; 84484; 85007; 85025; 87086; 93005; 96361; 96365; J1815; 99285-25; J7030

== ENCOUNTER → 2020-07-17 | Outpatient (CLI) | payer MEDICARE, OTHER ==
[~2020-07-17] MED LIST changes: +INSU100I11 SQ; +LEVO250T7 PO; -LISI-338 PO; +LISI-517 PO
[2020-07-17 11:22] LABS: BASO # 0.1 x10^3/uL (0.0-0.2); BASO % 1 % (0-3); EOS # 0.2 x10^3/uL (0.0-0.7); EOS % 3 % (0-3); HEMATOCRIT 40.4 % (36.0-47.0); HEMOGLOBIN 12.7 g/dL (12.0-15.5); LYMPH # 2.3 x10^3/uL (1.0-4.8); LYMPH % 32 % (24-48); MEAN CORPUSCULAR HEMOGLOBIN 28 pg (25-35); MEAN CORPUSCULAR HGB CONC 32 g/dL (31-37); MEAN CORPUSCULAR VOLUME 89 fL (79-100); MONO # 0.8 x10^3/uL (0.0-1.1); MONO % 11 % (0-9); NEUT # 3.9 x10^3uL (1.8-7.7); NEUT % 53 % (31-73); PLATELET COUNT 306 x10^3/uL (140-400); RED BLOOD COUNT 4.51 x10^6/uL (3.50-5.40); RED CELL DISTRIBUTION WIDTH 15.4 % (11.5-14.5); WHITE BLOOD COUNT 7.3 x10^3/uL (4.0-11.0)
[2020-07-17 11:28] LABS: CALCIUM 9.3 mg/dL (8.5-10.1); CREATININE 0.9 mg/dL (0.6-1.0); GFR 62.3; POTASSIUM 4.1 mmol/L (3.5-5.1)
[2020-07-17 21:50] LABS: FREE T4 0.97 ng/dL (0.76-1.46); THYROID STIM HORMONE (TSH) 1.825 uIU/mL (0.358-3.740)
[2020-07-18 01:07] LABS: HEMOGLOBIN A1C 11.5 % (4.8-5.6)
== END ==
LOC: LAB 10:07
PROVIDERS: ATTEND Family Medicine
DX: E11.65 Type 2 diabetes mellitus with hyperglycemia (principal); E87.6 Hypokalemia; E03.9 Hypothyroidism, unspecified; E78.01 Familial hypercholesterolemia; R07.89 Other chest pain; R55 Syncope and collapse
CPT/HCPCS: 36415; 80048; 80061; 82550; 83036; 84439; 84443; 84484; 85025

== ENCOUNTER 2021-03-15 15:50 | Inpatient (IN) | payer MEDICARE, OTHER ==
[~2021-03-15] VITALS: Ht 162.6 cm; Wt 60.0 kg
[~2021-03-15 15:50] MED LIST changes: -LEVO250T7 PO; +LEVO250T8 PO; -LEVO500T8 PO; +LEVO500T9 PO; -LISI-517 PO; -LISI2.5T PO; +LISI2.5T12 PO; +LISI5TAB15 PO
[2021-03-15] MEDS ORDERED: IV NORMAL SALINE 1,000ML 1,000 ML IV ONE (16:30)
[2021-03-15 16:33] LABS: BASO # 0.1 x10^3/uL (0.0-0.2); BASO % 1 % (0-3); EOS # 0.2 x10^3/uL (0.0-0.7); EOS % 2 % (0-3); HEMOGLOBIN 14.7 g/dL (12.0-15.5); LYMPH # 1.5 x10^3/uL (1.0-4.8); LYMPH % 17 % (24-48); MEAN CORPUSCULAR HEMOGLOBIN 30 pg (25-35); MEAN CORPUSCULAR HGB CONC 33 g/dL (31-37); MEAN CORPUSCULAR VOLUME 92 fL (79-100); MONO # 0.7 x10^3/uL (0.0-1.1); MONO % 8 % (0-9); NEUT # 6.3 x10^3uL (1.8-7.7); NEUT % 73 % (31-73); PLATELET COUNT 281 x10^3/uL (140-400); RED BLOOD COUNT 4.88 x10^6/uL (3.50-5.40); RED CELL DISTRIBUTION WIDTH 13.2 % (11.5-14.5); WHITE BLOOD COUNT 8.7 x10^3/uL (4.0-11.0)
[2021-03-15 16:42] LABS: CALCIUM 9.7 mg/dL (8.5-10.1); CREATININE 1.1 mg/dL (0.6-1.0); GFR 49.4; POTASSIUM 3.8 mmol/L (3.5-5.1)
[2021-03-15 16:47] LABS: ALBUMIN 3.7 g/dL (3.4-5.0); ALBUMIN/GLOBULIN RATIO 0.9 (1.0-1.7); MAGNESIUM 2.3 mg/dL (1.8-2.4); PHOSPHORUS 4.8 mg/dL (2.6-4.7); TOTAL BILIRUBIN 0.6 mg/dL (0.2-1.0); TOTAL PROTEIN 7.8 g/dL (6.4-8.2)
[2021-03-15] MEDS ORDERED: ONDANSETRON PF 4 MG/2 ML VIAL. ONE (16:53)
--- NOTE | 2021-03-15 16:58 | PHYS DOC ---
Past History Past Medical History: Arthritis, Diabetes Additional Past Medical Histor: YEISON'S, (ROBERT SEXTON MD) Past Surgical History: Cholecystectomy, Other Additional Past Surgical Histo: SHOULDER SURGERY, KIDNEY STONES (ROBERT SEXTON MD) Alcohol Use: None Drug Use: None (ROBERT SEXTON MD) General Adult EDM: Chief Complaint: NAUSEA/VOMITING/DIARRHEA HPI: HPI: Patient is a 70-year-old female coming in from primary care office for nausea and vomiting. Patient states she feels weak and complaining of low blood pressures. Patient was given an Zofran ODT at primary care prior to coming here states feels little bit better. Vomiting started this morning. Patient states she has not slept in a couple days because she has been feeling bad. Also states that she has had some chills and 3 loose stools today. Denies any cough. Patient is a history of type 2 diabetes and [place]'s disease. Has had Covid about 1 year ago and but is now fully vaccinated. (ROBERT SEXTON MD) Review of Systems: Review of Systems: All other systems within normal limits except for as noted in the HPI (ROBERT SEXTON MD) Current Medications: Current Meds: Current Medications Medications (Trade) Dose Ordered Sig/Berta Start Time Stop Time Status Last Admin Dose Admin Ondansetron HCl (Zofran) 4 mg STK-MED ONCE 03/15/21 16:53 03/15/21 16:53 DC Sodium Chloride 1,000 ml @ 1,000 mls/hr 1X ONCE 03/15/21 16:30 03/15/21 17:29 (ROBERT SEXTON MD) Allergies: Allergies: Allergies Coded Allergies Type Severity Reaction Last Updated Verified Penicillins Allergy Intermediate 05/14/14 No I S O L A T I O N *CONTACT* Allergy Unknown 05/15/14 No (ROBERT SEXTON MD) Physical Exam: PE: Constitutional: Well developed, well nourished, no acute distress, non-toxic ap pearance. [] HENT: Normocephalic, atraumatic, bilateral external ears normal, nose normal. [] Eyes: PERRLA, conjunctiva normal, no discharge. [] Neck: No rigidity, supple, no stridor. [] Cardiovascular: Regular rate and rhythm, brisk cap refill [] Lungs & Thorax: Non labored symmetric respirations, no tachypnea or respiratory distress [] Abdomen: Soft, nondistended, epigastric tenderness. Skin: Warm, dry, no erythema, no rash. [] Back: Unremarkable Extremities: No deformities, range of motion grossly intact, no lower extremity edema [] Neurologic: Alert and oriented X 3, no focal deficits noted. [] Psychologic: Affect normal, judgement normal, mood normal. [] (ROBERT SEXTON MD) Current Patient Data: Labs: Laboratory Tests Test 03/15/21 16:10 White Blood Count 8.7 x10^3/uL (4.0-11.0) Red Blood Count 4.88 x10^6/uL (3.50-5.40) Hemoglobin 14.7 g/dL (12.0-15.5) Hematocrit 45.0 % (36.0-47.0) Mean Corpuscular Volume 92 fL (79-100) Mean Corpuscular Hemoglobin 30 pg (25-35) Mean Corpuscular Hemoglobin Concent 33 g/dL (31-37) Red Cell Distribution Width 13.2 % (11.5-14.5) Platelet Count 281 x10^3/uL (140-400) Neutrophils (%) (Auto) 73 % (31-73) Lymphocytes (%) (Auto) 17 % (24-48) L Monocytes (%) (Auto) 8 % (0-9) Eosinophils (%) (Auto) 2 % (0-3) Basophils (%) (Auto) 1 % (0-3) Neutrophils # (Auto) 6.3 x10^3uL (1.8-7.7) Lymphocytes # (Auto) 1.5 x10^3/uL (1.0-4.8) Monocytes # (Auto) 0.7 x10^3/uL (0.0-1.1) Eosinophils # (Auto) 0.2 x10^3/uL (0.0-0.7) Basophils # (Auto) 0.1 x10^3/uL (0.0-0.2) Sodium Level 139 mmol/L (136-145) Potassium Level 3.8 mmol/L (3.5-5.1) Chloride Level 96 mmol/L (98-107) L Carbon Dioxide Level 31 mmol/L (21-32) Anion Gap 12 (6-14) Blood Urea Nitrogen 27 mg/dL (7-20) H Creatinine 1.1 mg/dL (0.6-1.0) H Estimated GFR (Cockcroft-Gault) 49.4 BUN/Creatinine Ratio 25 (6-20) H Glucose Level 249 mg/dL (70-99) H Lactic Acid Level 1.4 mmol/L (0.4-2.0) Calcium Level 9.7 mg/dL (8.5-10.1) Phosphorus Level 4.8 mg/dL (2.6-4.7) H Magnesium Level 2.3 mg/dL (1.8-2.4) Total Bilirubin 0.6 mg/dL (0.2-1.0) Aspartate Amino Transferase (AST) 30 U/L (15-37) Alanine Aminotransferase (ALT) 83 U/L (14-59) H Alkaline Phosphatase 118 U/L (46-116) H Troponin I Quantitative 0.031 ng/mL (0-0.055) Total Protein 7.8 g/dL (6.4-8.2) Albumin 3.7 g/dL (3.4-5.0) Albumin/Globulin Ratio 0.9 (1.0-1.7) L Lipase 68 U/L (73-393) L Vital Signs: Vital Signs Date Time Temp Pulse Resp B/P (MAP) Pulse Ox O2 Delivery O2 Flow Rate FiO2 03/15/21 16:05 98.0 102 18 100/51 (67) 94 Room Air (ROBERT SEXTON MD) EKG: EKG: Sinus rhythm with a heart rate of 100 bpm, normal axis, no ST elevation or depression, no ectopy, normal intervals. [] (ROBERT SEXTON MD) Radiology/Procedures: Radiology/Procedures: [] (ROBERT SEXTON MD) Radiology/Procedures: [address] [place] [id number] IMAGING REPORT Signed PATIENT: CARLINE CAMARILLO ACCOUNT: [id number] : 1950 LOCATION: ER AGE: 70 SEX: F EXAM STATUS: REG ER ORD. PHYSICIAN: ROBERT SEXTON MD REASON: vomiting, epigastric pain creat 1.1, 75mls omni 300 PROCEDURE: CT ABD PELV W/ IV CONTRST ONLY CT OF THE ABDOMEN AND PELVIS WITH IV CONTRAST. History: Reason: vomiting, epigastric pain Comparison:March 08, 2020. Procedure: Contiguous axial images of the abdomen and pelvis were performed after the administration of 75 cc of Omni 300 IV contrast. Oral contrast: No. Findings: There is bronchiectasis and consolidation in the lingula and the right middle lobe. Liver: Unremarkable Spleen: Unremarkable Pancreas: Unremarkable Adrenal Glands: Unremarkable Kidneys: Unremarkable There is no mass or lymphadenopathy. There is no free air. There is no free fluid. The urinary bladder appears normal. There is air and stool scattered throughout the colon. There is moderate wall thickening of the splenic flexure of the colon and descending colon and of the hepatic flexure of the colon. Impression: 1. Bronchiectasis and consolidation in the right middle lobe and lingula seen previously. 2. Moderate wall thickening of portions of the colon. This suggests pancolitis and could be infectious such as pseudomembranous colitis or could be inflammatory such as ulcerative colitis. There is no air in the wall to suggest ischemic colitis. There is no diverticulitis. End Impression PQRS Compliance Statement: One or more of the following individualized dose reduction techniques were utilized for this examination: 1. Automated exposure control 2. Adjustment of the mA and/or kV according to patient size 3. Use of iterative reconstruction technique Electronically signed by: Wayne Rincon III, MD (03/15/2021 5:54 PM) [facility] (ELIZABETH SCHMITZ MD) Heart Score: C/O Chest Pain: N/A Risk Factors: Risk Factors: DM, Current or recent (<one month) smoker, HTN, HLP, family history of CAD, obesity. Risk Scores: Score 0 - 3: 2.5% MACE over next 6 weeks - Discharge Home Score 4 - 6: 20.3% MACE over next 6 weeks - Admit for Clinical Observation Score 7 - 10: 72.7% MACE over next 6 weeks - Early Invasive Strategies (ROBERT SEXTON MD) Course & Med Decision Making: Course & Med Decision Making Pertinent Labs and Imaging studies reviewed. (See chart for details) [] (ROBERT SEXTON MD) Course & Med Decision Making See Dr. Sexton chart for details prior shift change. Discussed presentation, test and tx. plan with Dr. Garcia. Advised admit to his service. Impression: 1. Nausea and vomiting 2. Dehydration 3. Pancolitis inflammatory versus infectious 4. Bronchitis versus pneumonia 5. Diabetes= glucose 249 6. Renal insufficiency creatinine 1.1/BUN 27 7. Troponin 0.031 8. [place] dz (ELIZABETH SCHMITZ MD) Dragon Disclaimer: Dragon Disclaimer: This electronic medical record was generated, in whole or in part, using a voice recognition dictation system. (ROBERT SEXTON MD) Departure Departure: Referrals: KAM GARCIA MD (PCP) Dragon Disclaimer This chart was dictated in whole or in part using Voice Recognition software in a busy, high-work load, and often noisy Emergency Department environment. It may contain unintended and wholly unrecognized errors or omissions. (ELIZABETH SCHMITZ MD) Dragon Disclaimer This chart was dictated in whole or in part using Voice Recognition software in a busy, high-work load, and often noisy Emergency Department environment. It may contain unintended and wholly unrecognized errors or omissions. (ELIZABETH SCHMITZ MD) ROBERT SEXTON MD Mar 15, 2021 16:57 ELIZABETH SCHMITZ MD Mar 15, 2021 18:25
[2021-03-15] MEDS ORDERED: ONDANSETRON PF 4 MG/2 ML VIAL. IVP ONE ×2 (17:00→18:15)
[2021-03-15] MEDS ORDERED: CONTRAST GIVEN. MC PRN (17:15)
[2021-03-15] MEDS ORDERED: IOHEXOL 300 MG/ML 75 ML VIAL. IV ONE (17:15)
--- NOTE | 2021-03-15 17:56 | RAD ---
CT OF THE ABDOMEN AND PELVIS WITH IV CONTRAST. History: Reason: vomiting, epigastric pain Comparison:March 08, 2020. Procedure: Contiguous axial images of the abdomen and pelvis were performed after the administration of 75 cc o f Omni 300 IV contrast. Oral contrast: No. Findings: There is bronchiectasis and consolidation in the lingula and the right middle lobe. Liver: Unremarkable Spleen: Unremarkable Pancreas: Unremarkable Adrenal Glands: Unremarkable Kidneys: Unremarkable There is no mass or lymphadenopathy. There is no free air. There is no free fluid. The urinary bladder appears normal. There is air and stool scattered throughout the colon. There is moderate wall thickening of the splen ic flexure of the colon and descending colon and of the hepatic flexure of the colon. Impression: 1. Bronchiectasis and consolidation in the right middle lobe and lingula seen previously. 2. Moderate wall thickening of portions of the colon. This suggests pancolitis and could be infectiou s such as pseudomembranous colitis or could be inflammatory such as ulcerative colitis. There is no a ir in the wall to suggest ischemic colitis. There is no diverticulitis. End Impression PQRS Compliance Statement: One or more of the following individualized dose reduction techniques were utilized for this examinat ion: 1. Automated exposure control 2. Adjustment of the mA and/or kV according to patient size 3. Use of iterative reconstruction technique Electronically signed by: Wayne Rincon III, MD (03/15/2021 5:54 PM) [facility]
[2021-03-15] MEDS ORDERED: CIPROFLOXACIN 400MG PREMIX 200 ML IV ONE (18:30)
[2021-03-15] MEDS ORDERED: ONDANSETRON PF 4 MG/2 ML VIAL. IVP PRN (18:45)
[2021-03-15] MEDS ORDERED: ACETAMINOPHEN 325 MG TABLET PO PRN (18:45)
[2021-03-15] MEDS ORDERED: MORPHINE SULFATE 10 MG/ML SYRINGE. SQ ONE (18:45)
--- NOTE | 2021-03-15 18:47 | EKG ---
[address] [address] Test Date: 2021-03-15 Test Time: 16:33:05 Pat Name: CARLINE CAMARILLO Department: Room: Gender: F Wound/Ostomy Clinical Nurse Specialist: BELÉN : 1950 Requested By: ROBERT SEXTON Order Number: [id number] Reading MD: Yoandy Floyd MD Measurements Intervals [place] Rate: 100 P: 60 DE: 154 QRS: 28 QRSD: 80 T: 64 QT: 358 QTc: 465 Interpretive Statements SINUS RHYTHM Electronically Signed On 03-18-2021 11:11:23 CDT by Yoandy Floyd MD
[2021-03-15] MEDS ORDERED: methylPREDNISolone ACETATE 40 MG/ML VIAL. IM ONE (19:00)
[2021-03-15 19:23] LABS: BILIRUBIN,URINE NEG (NEG); CLARITY,URINE HAZY; COLOR,URINE YELLOW; GLUCOSE,URINE 500 mg/dL (NEG)
[2021-03-15 19:24] LABS: BACTERIA,URINE MOD /HPF (0-FEW); NITRITE,URINE POS (NEG); SQUAMOUS EPITHELIAL CELL,UR MOD /LPF; UROBILINOGEN,URINE 0.2 mg/dL (0.2 mg/dL); YEAST,URINE PRESENT /HPF
[2021-03-15] MEDS ORDERED: diphenhydrAMINE 50 MG/ML VIAL IVP ONE (19:30)
[2021-03-15] MEDS ORDERED: PROCHLORPERAZINE 10 MG/2 ML VIAL. IV ONE (19:30)
[2021-03-15 19:35] LABS: INFLUENZA A PATIENT NEGATIVE (NEGATIVE); INFLUENZA B PATIENT NEGATIVE (NEGATIVE)
[2021-03-15] MEDS ORDERED: IPRATRPIUM/ALBUTEROL 0.5/2.5MG 3 ML NEBU. NEB SCH (20:00)
[2021-03-15 20:20] VITALS: BP 98/62
--- NOTE | 2021-03-15 20:28 | NUR ---
The patient, CARLINE CAMARILLO, 70 y/o, F admitted by KAM GARCIA MD, was given written information regarding hospital policies, unit procedures and contact persons. Valuables were checked and left with patient.
[2021-03-15 22:30] VITALS: BP 110/52
[2021-03-15] MEDS ORDERED: ZOLPIDEM 5 MG TABLET. PO PRN (22:45)
[2021-03-15] MEDS ORDERED: MORPHINE SULFATE 2 MG/ML DISP.SYRIN. IV PRN (22:45)
[2021-03-15] MEDS ORDERED: ALBUTEROL SULFATE 8GM INHALER. INH PRN (22:45)
[2021-03-15] MEDS ORDERED: PROCHLORPERAZINE 5 MG TABLET. PO PRN (22:45)
[2021-03-15] MEDS: IV RINGERS SOLUTION,LACTATED 1,000 ML IV SCH (22:59)
[2021-03-15] MEDS ORDERED: ALBUTEROL SULFATE 2.5 MG/3 ML NEBU. NEB PRN (23:15)
[2021-03-16] MEDS: IV RINGERS SOLUTION,LACTATED 1,000 ML IV SCH ×5 (01:00→23:29)
[2021-03-16] MEDS: IPRATRPIUM/ALBUTEROL 0.5/2.5MG 3 ML NEBU. IH SCH ×2 (06:00→14:00)
[2021-03-16] MEDS: INSULIN LISPRO 300 UNITS/3 ML VIAL. SQ SCH ×2 (07:30→11:12)
[2021-03-16 07:41] LABS: BASO # 0.1 x10^3/uL (0.0-0.2); BASO % 1 % (0-3); EOS # 0.1 x10^3/uL (0.0-0.7); EOS % 1 % (0-3); HEMATOCRIT 39.4 % (36.0-47.0); HEMOGLOBIN 12.9 g/dL (12.0-15.5); LYMPH # 2.6 x10^3/uL (1.0-4.8); LYMPH % 28 % (24-48); MEAN CORPUSCULAR HEMOGLOBIN 30 pg (25-35); MEAN CORPUSCULAR HGB CONC 33 g/dL (31-37); MEAN CORPUSCULAR VOLUME 92 fL (79-100); MONO # 1.2 x10^3/uL (0.0-1.1); MONO % 13 % (0-9); NEUT # 5.2 x10^3uL (1.8-7.7); NEUT % 57 % (31-73); PLATELET COUNT 246 x10^3/uL (140-400); RED BLOOD COUNT 4.27 x10^6/uL (3.50-5.40); RED CELL DISTRIBUTION WIDTH 13.3 % (11.5-14.5); WHITE BLOOD COUNT 9.1 x10^3/uL (4.0-11.0)
[2021-03-16 07:52] LABS: CALCIUM 8.8 mg/dL (8.5-10.1); GFR 55.1; POTASSIUM 3.4 mmol/L (3.5-5.1)
[2021-03-16 08:12] VITALS: BP 126/66
[2021-03-16] MEDS: MIDODRINE 5 MG TABLET PO SCH ×3 (08:23→17:12)
[2021-03-16] MEDS: LACTOBACILLUS RHAMNOSUS GG 1 CAPSULE. PO SCH ×2 (08:24→20:43)
[2021-03-16] MEDS: DULoxetine HCL 30 MG CAPSULE.DR PO SCH ×2 (08:24→20:43)
[2021-03-16] MEDS: MAGNESIUM OXIDE 400 MG TABLET PO SCH ×2 (08:24→20:44)
[2021-03-16] MEDS: GABAPENTIN 100 MG CAPSULE. PO SCH ×3 (08:24→20:44)
[2021-03-16] MEDS: LISINOPRIL 5 MG TABLET. PO SCH (08:24)
[2021-03-16] MEDS: VANCOMYCIN 125 MG/2.5 ML ORAL SOLUTION. PO SCH ×4 (08:26→20:44)
[2021-03-16] MEDS: FLUDROCORTISONE 0.1 MG TABLET PO SCH (08:27)
[2021-03-16] MEDS ORDERED: CIPROFLOXACIN 400MG PREMIX 200 ML IV SCH (09:00)
[2021-03-16] MEDS ORDERED: metroNIDAZOLE 500 MG TABLET PO SCH (09:00)
[2021-03-16] MEDS ORDERED: FLUDROCORTISONE 0.1 MG TABLET PO SCH (09:00)
[2021-03-16 10:40] VITALS: BP 121/63
[2021-03-16] MEDS: glipiZIDE 5 MG TABLET PO SCH ×2 (11:05→17:12)
[2021-03-16] MEDS: CITALOPRAM 10 MG TABLET. PO SCH (11:05)
[2021-03-16] MEDS: HYDROCORTISONE 10 MG TABLET PO SCH ×2 (11:06→20:44)
[2021-03-16] MEDS ORDERED: diazePAM 2 MG TABLET. PO PRN (11:45)
[2021-03-16 15:45] VITALS: BP 158/78
[2021-03-16] MEDS: ACETAMINOPHEN/CODEINE 300/30MG TABLET PO PRN (17:23)
[2021-03-16] MEDS ORDERED: ALBUTEROL SULFATE 8GM INHALER. INH PRN (19:15)
[2021-03-16 19:40] VITALS: BP 105/68
[2021-03-16] MEDS: APIXABAN 2.5 MG TABLET PO SCH (20:43)
--- NOTE | 2021-03-16 21:09 | RAD ---
XR CHEST 1V INDICATION: cov19 . COMPARISON STUDY: 03/12/2020, 03/10/2020. FINDINGS: Lungs: Normal lung volume. Mild bibasilar opacities. Pleura: No pleural effusion or pneumothorax. Heart and Mediastinum: Stable cardiomediastinal silhouette and great vessels. IMPRESSION: Mild bibasilar opacities, which could represent subsegmental atelectasis or potentially an infectious /inflammatory process. Electronically signed by: Reji Dewitt MD (03/16/2021 9:07 PM) [facility]
--- NOTE | 2021-03-16 23:40 | PN ---
DATE: 03/16/2021 SUBJECTIVE: A 70-year-old female admitted yesterday with nausea, vomiting, dehydration. Presently, she has been diagnosed with COVID-19, possible COVID-19 pneumonia. She was hypotensive. She has diabetic retinopathy and numerous other medical issues including her poorly controlled diabetes for which she would not take insulin. She also has Mobile's disease. In any case, the patient says she is feeling a little better with some fluids. She has been able to eat a little bit better now and advancing her diet, although presently as noted she is under COVID-19 restrictions. OBJECTIVE: VITAL SIGNS: The patient's blood pressure has come up to 158/78, respiratory rate 18, pulse 94, afebrile. GENERAL: The patient is alert and oriented. LUNGS: Diminished, primarily in the bases. CARDIOVASCULAR: Regular sinus rhythm. ABDOMEN: Soft and scaphoid. EXTREMITIES: No clubbing, cyanosis, nor edema. NEUROLOGIC: The patient is alert and oriented, feels somewhat better, but obviously is quite ill from her nausea and vomiting, which may have been related to the COVID-19 itself. IMPRESSION AND PLAN: COVID-19 with nausea, vomiting, dehydration, diarrhea, pancolitis, consolidations of the lungs, adrenal insufficiency, Mobile's disease, diabetic retinopathy as well as a Charcot joint of her feet. The patient continues on fluids for now. This is a tricky situation. We may have to put her back on the antibiotics. She is on oral vancomycin since the patient has had problems with pancolitis, which might be related to C. difficile, so this complicates the issue of treating her possible pneumonia, although chest x-ray shows a continuation from previous x-rays there, so this is a judgment. She is not running a temperature right at the moment and so we will continue to monitor her on that. Other diagnoses codes related to of course diabetic neuropathy, elevated A1c, poorly controlled diabetes. The patient continued to be monitored carefully and adjust medications accordingly for her multiple medical issues as noted. MICKEY DR: Tara TID: [id number]
[2021-03-17] MEDS: ACETAMINOPHEN/CODEINE 300/30MG TABLET PO PRN ×3 (00:07→15:49)
[2021-03-17 00:56] VITALS: BP 148/77
[2021-03-17] MEDS: IV RINGERS SOLUTION,LACTATED 1,000 ML IV SCH ×5 (02:00→21:12)
[2021-03-17 05:50] VITALS: BP 154/64
[2021-03-17] MEDS: glipiZIDE 5 MG TABLET PO SCH ×2 (08:10→15:47)
[2021-03-17] MEDS: APIXABAN 2.5 MG TABLET PO SCH ×2 (08:10→21:11)
[2021-03-17] MEDS: HYDROCORTISONE 10 MG TABLET PO SCH ×2 (08:11→21:11)
[2021-03-17] MEDS: VANCOMYCIN 125 MG/2.5 ML ORAL SOLUTION. PO SCH ×4 (08:11→21:14)
[2021-03-17] MEDS: GABAPENTIN 100 MG CAPSULE. PO SCH ×3 (08:11→21:11)
[2021-03-17] MEDS: DULoxetine HCL 30 MG CAPSULE.DR PO SCH ×2 (08:11→21:11)
[2021-03-17] MEDS: CHOLECALCIFEROL (VITAMIN D3) 1,000 UNIT TABLET PO SCH (08:12)
[2021-03-17] MEDS: CITALOPRAM 10 MG TABLET. PO SCH (08:13)
[2021-03-17] MEDS: MIDODRINE 5 MG TABLET PO SCH ×3 (08:24→17:00)
[2021-03-17] MEDS: LACTOBACILLUS RHAMNOSUS GG 1 CAPSULE. PO SCH ×2 (08:24→21:10)
[2021-03-17] MEDS: MAGNESIUM OXIDE 400 MG TABLET PO SCH ×2 (08:26→21:11)
[2021-03-17] MEDS: LISINOPRIL 5 MG TABLET. PO SCH (08:26)
[2021-03-17] MEDS: FLUDROCORTISONE 0.1 MG TABLET PO SCH (08:26)
[2021-03-17 10:51] VITALS: BP 131/68
[2021-03-17] MEDS: IPRATROPIUM/ALBUTEROL 20/100mcg/INH INHALER. INH SCH ×3 (11:11→21:00)
[2021-03-17 15:54] VITALS: BP 156/80
[2021-03-17 19:48] VITALS: BP 162/75
[2021-03-17] MEDS: LINAGLIPTIN 5 MG TABLET PO SCH (21:14)
--- NOTE | 2021-03-18 01:09 | PN ---
SUBJECTIVE: She is a 70-year-old female admitted with nausea, vomiting, and dehydration. The patient possibly had COVID-19 pneumonia and she was hypotensive. She has numerous other medical issues. The patient seems to be doing a little better today. She has been able to eat and drink. She continues on oral vancomycin, which is helping her with her pancolitis. OBJECTIVE: VITAL SIGNS: Blood pressure 130/68, pulse 100, presently afebrile, 96% on room air. LUNGS: Diminished, but basically clear. ABDOMEN: Soft. There was diffuse tenderness, but much improved. The patient does have gram-negative bacteria in her urine. We will place her on some IV antibiotic therapy for that coverage rather than try to challenge her bowel with any other oral medication at the present time. She is COVID positive. IMPRESSION: Pancolitis, COVID-19, type 2 diabetes, poorly controlled, although improved. PLAN: We will go ahead and continue to monitor the patient accordingly and continue with oral and IV antibiotic therapy. DOROTEO/DIDI/BENITEZ DR: DOROTEO/marky TID: [id number]
[2021-03-18] MEDS: IV RINGERS SOLUTION,LACTATED 1,000 ML IV SCH (05:20)
[2021-03-18 06:06] VITALS: BP 145/72
[2021-03-18] MEDS: MIDODRINE 5 MG TABLET PO SCH (06:23)
[2021-03-18 07:17] LABS: BASO % 0 % (0-3); EOS # 0.2 x10^3/uL (0.0-0.7); EOS % 2 % (0-3); HEMATOCRIT 43.3 % (36.0-47.0); HEMOGLOBIN 14.1 g/dL (12.0-15.5); LYMPH # 2.5 x10^3/uL (1.0-4.8); LYMPH % 25 % (24-48); MEAN CORPUSCULAR HEMOGLOBIN 30 pg (25-35); MEAN CORPUSCULAR HGB CONC 33 g/dL (31-37); MEAN CORPUSCULAR VOLUME 93 fL (79-100); MONO % 10 % (0-9); NEUT # 6.3 x10^3uL (1.8-7.7); NEUT % 63 % (31-73); PLATELET COUNT 255 x10^3/uL (140-400); RED BLOOD COUNT 4.68 x10^6/uL (3.50-5.40); RED CELL DISTRIBUTION WIDTH 13.2 % (11.5-14.5)
[2021-03-18 07:56] VITALS: BP 145/72
[2021-03-18] MEDS: CHOLECALCIFEROL (VITAMIN D3) 1,000 UNIT TABLET PO SCH (07:56)
[2021-03-18] MEDS: CITALOPRAM 10 MG TABLET. PO SCH (07:56)
[2021-03-18] MEDS: DULoxetine HCL 30 MG CAPSULE.DR PO SCH (07:56)
[2021-03-18] MEDS: LISINOPRIL 5 MG TABLET. PO SCH (07:56)
[2021-03-18] MEDS: LACTOBACILLUS RHAMNOSUS GG 1 CAPSULE. PO SCH (07:56)
[2021-03-18] MEDS: MAGNESIUM OXIDE 400 MG TABLET PO SCH (07:56)
[2021-03-18] MEDS: GABAPENTIN 100 MG CAPSULE. PO SCH (07:57)
[2021-03-18] MEDS: APIXABAN 2.5 MG TABLET PO SCH (07:57)
[2021-03-18] MEDS: LINAGLIPTIN 5 MG TABLET PO SCH (07:57)
[2021-03-18] MEDS: glipiZIDE 5 MG TABLET PO SCH (07:57)
[2021-03-18] MEDS: IPRATROPIUM/ALBUTEROL 20/100mcg/INH INHALER. INH SCH (07:58)
[2021-03-18] MEDS: HYDROCORTISONE 10 MG TABLET PO SCH (07:58)
[2021-03-18] MEDS: FLUDROCORTISONE 0.1 MG TABLET PO SCH (07:58)
[2021-03-18] MEDS: VANCOMYCIN 125 MG/2.5 ML ORAL SOLUTION. PO SCH (07:59)
[2021-03-18] MEDS ORDERED: CHOL10004 PO (09:31)
--- NOTE | 2021-03-18 10:42 | NUR ---
PT WHEELED TO THE FRONT BY STAFF AND PICKED UP BY . PT HAS ALL OF BELONGINGS AND DISCHARGE PAPERWORK.
[2021-03-18] MEDS ORDERED: IV RINGERS SOLUTION,LACTATED 1,000 ML IV SCH (12:00)
--- NOTE | 2021-03-19 09:46 | DS ---
DATE OF DISCHARGE: 03/18/2021 HOSPITAL COURSE: The patient came in. She was having severe nausea and vomiting, unable to keep any fluids down at all. CT scan in the Emergency Room showed she had pancolitis and she has multiple other problems including that of [place]'s disease; type 2 diabetes, poorly controlled. She refuses to take insulin. Her SARS-CoV-2 was positive, although she has had immunizations. The patient was hydrated. Use of Compazine helped her feel much better. Actually started her on some vancomycin orally, which also for whatever reason seemed to help her improve as the patient did note that she did have possible C. difficile. PHYSICAL EXAMINATION: VITAL SIGNS: Blood pressure 145/70, respiratory rate 20, pulse 100, afebrile, 94 on room air. GENERAL: The patient alert and oriented. LUNGS: Clear. CARDIOVASCULAR: Stable. ABDOMEN: Soft, diffuse tenderness, but was able to eat and drink by the time she was being discharged. LABORATORY DATA: The patient's lab showed basically CBC was all within range. Her chemistries outside of her blood sugar, which ranged anywhere from 150 to 300 except for slightly low potassium, BUN and creatinine 25 and 1. Sugars variable. The patient made good progress and was discharged home. She will be started on some oral hypoglycemic agents to help her control her sugars as much as possible. She has been to several endocrinologists about this issue. IMPRESSION: Pancolitis; dehydration; COVID-19; type 2 diabetes, poorly controlled; [place]'s disease; nausea; vomiting; dehydration; diabetic retinopathy; Charcot joint. PLAN: The patient will continue on present drug regimen as noted and be discharged home. Follow up as an outpatient. DOROTEO/NOE/BRINA DR: DOROTEO/marky TID: [id number]
== END 2021-03-18 10:43 | disposition home or self-care (01) | DRG 177 ==
LOC: ER 15:50 → 1 SOUTH 18:31
PROVIDERS: ADMIT Family Medicine; ATTEND Family Medicine
DX: U07.1 COVID-19 (principal); J12.82 Pneumonia due to coronavirus disease 2019; A04.72 Enterocolitis due to Clostridium difficile, not specified as recurrent; E27.1 Primary adrenocortical insufficiency; E11.319 Type 2 diabetes mellitus with unspecified diabetic retinopathy without macular edema; E11.65 Type 2 diabetes mellitus with hyperglycemia; E86.0 Dehydration; N28.9 Disorder of kidney and ureter, unspecified; Z87.442 Personal history of urinary calculi; M19.90 Unspecified osteoarthritis, unspecified site; E11.610 Type 2 diabetes mellitus with diabetic neuropathic arthropathy; Z79.4 Long term (current) use of insulin; Z90.49 Acquired absence of other specified parts of digestive tract; R53.1 Weakness; Z86.73 Personal history of transient ischemic attack (TIA), and cerebral infarction without residual deficits
CPT/HCPCS: 36415; 71045; 74177; 80048; 80053; 81001; 82947; 83605; 83690; 83735; 84100; 84484; 85025; 85651; 86140; 87077; 87086; 87186; 87426; 87804; 93005; 96361; 96365; 96366; 96372; 96375; 96376; J0744; J0780; J1030; J1200; J1815; J1956; J2270; J2405; J3490; J7120; Q9967; U0003; 99285-25; J7030